=== PATIENT | female | born 1940 | race Caucasian/White ===

== ENCOUNTER → 2016-05-25 | Outpatient (CLI) | payer OTHER, MEDICARE | LOC: FIMAGING 13:18 | PROVIDERS: ATTEND Family Medicine | DX: Z13.820 Encounter for screening for osteoporosis (principal); Z78.0 Asymptomatic menopausal state ==

== ENCOUNTER 2016-10-29 09:57 | Emergency (ER) | payer OTHER, MEDICARE ==
--- NOTE | 2016-10-29 10:26 | EDPHY ---
H & P Stated Complaint: head inj 3 wks ago/bronze lamp fell on head/mitchell since/mild nausea HPI/ROS: CHIEF COMPLAINT: Closed head injury, headache HISTORY OF PRESENT ILLNESS: Patient complains of a headache to the right posterior scalp that occurred 1 lamp struck her 3 weeks ago. She was struck by a bronze lamp on her home while adjusting her oxygen tubes. Struck her on the right side of her occiput. Questionable loss of consciousness. Since that time she has had a headache. It is much better than the time of onset but still lingers. It is worse to palpation. Does not radiate. No numbness or tingling. Some nausea but no vomiting. Some upper neck pain to the right side of midline. No chest or back pain or injury. No lacerations were sustained. No unilateral complaints of the extremities. No facial droop. No confusion. No dizziness or difficulty with her thought process. No other associated complaints or modifying factors. REVIEW OF SYSTEMS: Ten systems reviewed and are negative unless otherwise noted in the HPI PAST MEDICAL HISTORY: Extensive, reviewed with patient SOCIAL HISTORY: Former smoker. Lives here and works at her own company FAMILY HISTORY: Noncontributory EXAMINATION General Appearance: Alert, no distress Head: normocephalic, atraumatic. No depressions or hematomas. No lacerations. No Paredes sign. No raccoon eyes. Eyes: Pupils equal and round, no conjunctival pallor or injection. Bilateral arcus senilis. No hyphema. No subconjunctival hemorrhage. EOMs intact. ENT, Mouth: Mucous membranes moist. Airway patent. No trismus. Neck: Normal inspection, supple, non-tender. No crepitus, step-off or deformity. Respiratory: Lungs are clear to auscultation Cardiovascular: Regular rate and rhythm. No murmur. Pulses intact distally symmetrically in the radial and DP Gastrointestinal: Abdomen is soft and nontender Back: non-tender, no bony abnormalities Neurological: GCS 15. A&O. Cranial nerves 2-12 grossly intact. nonfocal, normal gait. Strength is symmetric in all 4 limbs. No pronator drift. No dysmetria. Skin: Warm and dry, no rash. No lacerations abrasions or contusions. Extremities: Nontender, no pedal edema Psychiatric: Mood and affect normal DIFFERENTIAL DIAGNOSES: Including but not limited to closed head injury, scalp hematoma, subdural hematoma, subarachnoid hemorrhage, cervical sprain, myofascial sprain MDM: 10:18 a.m. Closed head injury 3 weeks ago with lingering, mild complaints. There is no evidence of basilar skull fracture. There is a fully normal neuro examination without deficit. No evidence of midline bony injury of the neck. I have ordered CT scans of the head neck given her age, risk factors and duration of symptoms. She is in no acute distress. 11:10 a.m. Notified by radiologist Dr. Ivory. CT scan of the head reveals no acute findings. CT scan of the cervical spine reveals no acute findings but there are chronic, degenerative changes noted. 11:20 a.m. I have re-evaluated the patient. I have updated her regarding the CT findings. She remains awake alert, no acute distress. Fully ambulatory without any assistance. Fully neuro intact. Discharged home with symptomatic instructions. Follow up with primary care physician and/or Dr. Lozada for definitive care. She is comfortable with this plan and discharged home in stable condition. SUPERVISION: Patient was evaluated in conjunction with the supervising physician. Please see their note for details. Source: Patient Exam Limitations: No limitations - Personal History Current Tetanus/Diphtheria Vaccine: Yes - Medical/Surgical History Hx Asthma: Yes Hx Chronic Respiratory Disease: Yes Hx Diabetes: No Hx Cardiac Disease: Yes Hx Renal Disease: No Hx Cirrhosis: No Hx Alcoholism: No Hx HIV/AIDS: No Hx Splenectomy or Spleen Trauma: No Other PMH: Stent placements, CAD, asthma, COPD - Social History Smoking Status: Former smoker Constitutional: Initial Vital Signs Temperature (C) 98.4 F 10/29/16 10:02 Heart Rate 76 10/29/16 10:02 Respiratory Rate 18 10/29/16 10:02 Blood Pressure 176/84 H 10/29/16 10:02 O2 Sat (%) 95 10/29/16 10:02 O2 Delivery Mode Room Air Allergies/Adverse Reactions: No Known Allergies Allergy (Verified 10/29/16 10:00) Home Medications: Medication Instructions Recorded Ezetimibe [Zetia 10 MG (*)] 10 mg PO DAILY 06/17/12 Fenofibrate [Tricor 145 mg (*)] 145 mg PO DAILY 06/17/12 Fexofenadine HCl [Richelle] 180 mg PO DAILY PRN 06/17/12 Levothyroxine [Synthroid 100 mcg 100 mcg PO MOTUTHFRSA@06 06/17/12 (*)] Vits A,C,E/Lutein/Minerals 1 each PO DAILY 06/17/12 [Ocuvite with Lutein Tablet] Albuterol Sulfate [Albuterol 1 - 2 puffs IH DAILY PRN 05/06/14 Inhaler Hfa] Budesonide/Formoterol 160/4.5 1 puffs IH BID 05/06/14 [Symbicort 160-4.5 Mcg Inh (*)] Cholecalciferol (Vitamin D3) 6,000 unit PO DAILY 05/06/14 [Vitamin D3] Colesevelam HCl [Welchol (*)] 1,875 mg PO BIDMEAL 05/06/14 Herbals/Supplements -Info Only 1 ea PO DAILY 05/06/14 Multivitamins [Multivitamin (*)] 1 each PO DAILY 05/06/14 Conley-3S/Dha/Epa/Fish Oil [Fish 1 each PO DAILY 05/06/14 Oil 1,200 mg Softgel] Rosuvastatin Calcium [Crestor 40mg 20 mg PO DAILY 05/06/14 (*)] Tiotropium Inhaler [Spiriva 1 inh IH DAILY 05/06/14 Inhaler (RX)] Repatha Pushtronex 10/29/16 Medical Decision Making - Diagnostics Imaging Results: Imaging Impressions Cervical Spine CT 10/29/16 10:17 Impression: 1. No acute posttraumatic abnormality identified. If symptoms persist and clinical suspicion warrants, consider MRI. 2. Multilevel degenerative change. 3. Carotid atherosclerosis, left greater than right. 4. Additional findings as above. Findings discussed with Alexandre Moore PA-C, on October 29, 2016 at 11:[address] 10/29/16 10:17 Impression: 1. No acute intracranial findings. 2. Diffuse cerebral atrophy with periventricular and subcortical low attenuation consistent with chronic microvascular ischemic gliosis. Findings discussed with Alexandre Moore PA-C, on October 29, 2016 at 11:07 a.m. - Data Points Laboratory Results: Laboratory Results 10/29/16 10:15 10/29/16 10:15 10/29/16 10/29/16 10/29/16 10:15 10:15 10:15 WBC 5.54 10^3/uL 10^3/uL (3.80-9.50) RBC 4.63 10^6/uL 10^6/uL (4.18-5.33) Hgb 15.1 g/dL g/dL (12.6-16.3) Hct 45.0 % % (38.0-47.0) MCV 97.2 fL fL (81.5-99.8) MCH 32.6 pg pg (27.9-34.1) MCHC 33.6 g/dL g/dL (32.4-36.7) RDW 13.5 % % (11.5-15.2) Plt Count 187 10^3/uL 10^3/uL (150-400) PT 13.6 SEC SEC (12.0-15.0) INR 1.05 (0.83-1.16) APTT 25.6 SEC SEC (23.0-38.0) Sodium 145 mEq/L H mEq/L (134-144) Potassium 3.5 mEq/L mEq/L (3.5-5.2) Chloride 107 mEq/L mEq/L (97-110) Carbon Dioxide 23 mEq/l mEq/l (22-31) Anion Gap 15 mEq/L mEq/L (8-16) BUN 13 mg/dL mg/dL (7-23) Creatinine 0.7 mg/dL mg/dL (0.6-1.0) Estimated GFR > 60 Glucose 102 mg/dL H mg/dL (70-100) Calcium 10.5 mg/dL H mg/dL (8.5-10.4) Departure - Departure Disposition: Home, Routine, Self-Care Clinical Impression: Closed head injury Qualifiers: Encounter type: initial encounter Qualified Code(s): S09.90XA - Unspecified injury of head, initial encounter Condition: Good Instructions: Concussion (ED), Head Injury (ED) Additional Instructions: 1. Follow up with primary care physician 2. Return here for any sudden change of headache, nausea vomiting Referrals: Josiane Altman MD [Primary Care Provider] - As per Instructions
[2016-10-29 10:28] LABS: HEMOGLOBIN 15.1 g/dL (12.6-16.3); MEAN CELL HEMOGLOBIN 32.6 pg (27.9-34.1); MEAN CELL HEMOGLOBIN CONCENTR. 33.6 g/dL (32.4-36.7); MEAN CELL VOLUME 97.2 fL (81.5-99.8); RED BLOOD CELL COUNT 4.63 10^6/uL (4.18-5.33); RED CELL DISTRIBUTION WIDTH 13.5 % (11.5-15.2)
[2016-10-29 10:38] LABS: ANION GAP 15 mEq/L (8-16); CALCIUM 10.5 mg/dL (8.5-10.4); CARBON DIOXIDE 23 mEq/l (22-31); CHLORIDE 107 mEq/L (97-110); CREATININE 0.7 mg/dL (0.6-1.0); GLOMERULAR FILTRATION RATE > 60; GLUCOSE 102 mg/dL (70-100); POTASSIUM 3.5 mEq/L (3.5-5.2); SODIUM 145 mEq/L (134-144)
[2016-10-29 10:40] LABS: INR 1.05 (0.83-1.16); PROTIME(PATIENT) 13.6 SEC (12.0-15.0)
[2016-10-29 10:41] LABS: APTT 25.6 SEC (23.0-38.0)
[2016-10-29 11:33] VITALS: BP 175/62; PULSE 70; TEMP 98.8; O2SAT 91
[2016-10-29 11:35] VITALS: RESP 18
== END 2016-10-29 11:33 | disposition home or self-care (01) ==
DX: S09.90XA Unspecified injury of head, initial encounter (principal); I25.10 Atherosclerotic heart disease of native coronary artery without angina pectoris; J44.9 Chronic obstructive pulmonary disease, unspecified; Z87.891 Personal history of nicotine dependence; Z95.5 Presence of coronary angioplasty implant and graft; W22.8XXA Striking against or struck by other objects, initial encounter; Y92.009 Unspecified place in unspecified non-institutional (private) residence as the place of occurrence of the external cause; Y99.8 Other external cause status; Y93.89 Activity, other specified

== ENCOUNTER 2017-12-03 06:12 | Day surgery (SDC) | payer OTHER, MEDICARE ==
[2017-12-03] MEDS ORDERED: ASPIRIN EC 325 MG TAB PO ONE ×2 (06:19→06:59)
[2017-12-03] MEDS ORDERED: NS 1,000 ML IV ONE (06:19)
[2017-12-03] MEDS ORDERED: diphenhydrAMINE 25 MG CAP PO ONE ×2 (06:19→06:59)
[2017-12-03] MEDS ORDERED: DIAZEPAM 5 MG TAB PO ONE (06:19)
[2017-12-03] MEDS ORDERED: FAMOTIDINE 20 MG TAB PO ONE (06:19)
--- NOTE | 2017-12-03 06:56 | CPEKG ---
Test Reason : OPEN Blood Pressure : / mmHG Vent. Rate : 083 BPM Atrial Rate : 083 BPM P-R Int : 173 ms QRS Dur : 091 ms QT Int : 374 ms P-R-T Axes : 064 041 007 degrees QTc Int : 440 ms Sinus rhythm Minimal ST depression, lateral leads Confirmed by Jose E Mathews ([id number]) on 12/03/2017 6:56:31 AM Referred By: Confirmed By:Jose E Mathews
[2017-12-03 06:58] LABS: PLATELET COUNT 184 10^3/uL (150-400)
--- NOTE | 2017-12-03 06:58 | PDHPUP ---
History & Physical Update H&P update statement: This history and physical update is based on an assessment of the patient which was completed after admission or registration (within 24 hours), but prior to the surgery/procedure. H&P update: H&P reviewed & patient examined, no change in patient's condition since H&P completed
--- NOTE | 2017-12-03 06:58 | PDPROPOC ---
Sedation Plan of Care Sedation Plan of Care: patient educated of risks, benefits, alternatives, patient can tolerate sedation ASA Classification: ASA 2 Planned drugs: fentanyl, midazolam Mallampati Score: Class 2 Mallampati Reference Image: Patient passed 3-3-2 rule?: Yes
[2017-12-03] MEDS ORDERED: FAMOTIDINE 20 MG TAB ONE (06:59)
[2017-12-03] MEDS ORDERED: IOPAMIDOL (ISOVUE-370) 150 ML BTL IV ONE (07:05)
[2017-12-03] MEDS ORDERED: fentaNYL 100 MCG/2 ML INJ ONE (07:05)
[2017-12-03] MEDS ORDERED: MIDAZOLAM 2 MG/2 ML VIAL ONE (07:05)
[2017-12-03] MEDS ORDERED: LIDOCAINE 1% 300 MG/30 ML SDV ONE (07:05)
[2017-12-03 07:06] LABS: INR 1.06 (0.83-1.16)
--- NOTE | 2017-12-03 09:15 | CPIP ---
DATE OF PROCEDURE: 12/03/2017 INDICATION FOR PROCEDURE: Pre TAVR. PROCEDURE: 1. Nonselective left groin sheathogram. 2. Right heart catheterization from left common femoral vein. 3. Abdominal aortogram. HISTORY: Briefly, this is a 77-year-old female with history of severe aortic stenosis with severe pe ripheral vascular disease as well. 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 The patient was consented for right heart catheteriza tion and abdominal aortogram in anticipation for eventual TAVR. DESCRIPTION OF PROCEDURE: After informed consent was obtained, the patient was brought to [facility] where the left groin was prepped and draped in the usual sterile fashion. Using lidocaine, a short 5-Frenc h sheath placed in the left common artery verified angiographically. A 7-Pashto sheath was placed in the left common femoral vein. [place]ather catheter was then advanced. Wedge pressure was measured wi th mean of 6, A-wave 7, V-wave 9, PA pressure was measured systolic 24, diastolic 13, mean of 17. RV pressure systolic 36 with a diastolic of 2, end of 7. Cardiac output was measured to be approximate ly 4.0 with a Alberto of 2.4. AO sat was 89%. PA sat was 69%. At this time, the [place]ather catheter wa s removed. A pigtail catheter was then advanced. However, there was some difficulty advancing the p igtail catheter through the mid distal aorta. This was switched out for a Glidewire and this success fully traversed this area. The pigtail catheter was then placed superior to the area of question whe re pressure was obtained. Of note, there was approximately a 35 mm gradient of pressure difference b etween the area of the immediate descending aorta and the infrarenal aorta indicating most likely eric cific stenosis. At this time an abdominal angiogram was taken above the level of the renals, which s howed patent renal arteries bilaterally with some heavy calcification noted just infrarenally. The a mitch of the bifurcation of the common iliac artery showed a moderate to severe area of calcification o n the right common iliac artery. The right external, internal, and common femoral arteries were wide ly patent. The left common iliac artery, internal and external iliac arteries were widely patent as well. At this time, we did a gentle pullback across this area of the infrarenal calcification, which revealed an approximately 30-35 mm gradient. We took another abdominal angiogram at this point, wh ch showed once again the patent aortoiliac conduit with a notable chunk of calcium in the right commo n iliac artery. At this time, the Glidewire was then gently advanced past the area of question in th e infrarenal area and the pigtail catheter was removed. A JR4 catheter that was then advanced and th is was then placed in the left subclavian artery. Angiography of the left subclavian artery showed h eavy calcification in the ostial left subclavian artery and the proximal left subclavian artery. The mid distal subclavian appeared to be widely patent. At this time, the JR4 catheter was removed over an 0.035 wire. The left groin was closed with manual pressure. Patient tolerated the procedure wel l with no issues. IMPRESSION: 1. Normal right heart pressures with borderline low cardiac output. 2. Severe aortoiliac peripheral arterial disease with noticeable 30-35 mm gradient across the infrar enal aorta. PLAN: Given the patient's vascular disease as well as the porcelain aorta, the patient is clearly no t an adequate open surgical candidate. Left subclavian artery access does not appear adequate as wel l as the patient has heavy calcification across the left ostial and proximal subclavian. Her left il eofemoral access is widely patent and this would be adequate to access a large sheath. The goal will be to potentially perform access of left common femoral artery with serial up-dilations through the area of the distal aorta over a very stiff wire and place an 18-Pashto sheath with subsequent placeme nt of a CoreValve through the sheath if it is through the lesion. The right radial access could be o btained for pigtail and pressure monitoring. We will discuss this with our TAVR team and proceed acc ordingly. /[id number]/MODL
[2017-12-03] MEDS ORDERED: ONDANSETRON 4 MG/2 ML VIAL IVP PRN (09:51)
[2017-12-03] MEDS ORDERED: ATROPINE SULFATE 1 MG/10 ML SYR IVP PRN (09:51)
== END 2017-12-03 11:45 | disposition home or self-care (01) ==
LOC: FCATH 06:12
PROVIDERS: ATTEND Internal Medicine Cardiovascular Disease
PROC: 4A023N6 Measurement of Cardiac Sampling and Pressure, Right Heart, Percutaneous Approach (ICD-10-PCS; principal; 2017-12-03)
PROC: B4101ZZ Fluoroscopy of Abdominal Aorta using Low Osmolar Contrast (ICD-10-PCS; principal; 2017-12-03)
DX: I35.9 Nonrheumatic aortic valve disorder, unspecified (principal); I70.0 Atherosclerosis of aorta; I70.8 Atherosclerosis of other arteries; I25.10 Atherosclerotic heart disease of native coronary artery without angina pectoris; I10 Essential (primary) hypertension; E03.9 Hypothyroidism, unspecified; E78.5 Hyperlipidemia, unspecified; J44.9 Chronic obstructive pulmonary disease, unspecified; E55.9 Vitamin D deficiency, unspecified; Z95.5 Presence of coronary angioplasty implant and graft; Z82.49 Family history of ischemic heart disease and other diseases of the circulatory system
CPT/HCPCS: C1769; J1644; J2250; J3010; Q9967

== ENCOUNTER 2017-12-20 06:59 | Inpatient (IN) | payer OTHER, MEDICARE ==
[~2017-12-20 06:59] MED LIST: LIDOCAINE 1% 300 MG/30 ML SDV ONE; NS 1,000 ML IV ONE
[2017-12-20] MEDS ORDERED: IOPAMIDOL (ISOVUE-370) 150 ML BTL IV ONE ×3 (07:00→12:08)
--- NOTE | 2017-12-20 07:17 | PDPROPOC ---
Sedation Plan of Care Sedation Plan of Care: mental status noted, patient educated of risks, benefits , alternatives, patient can tolerate sedation ASA Classification: ASA 2 Planned drugs: other Mallampati Score: Class 2 Mallampati Reference Image: Patient passed 3-3-2 rule?: Yes
[2017-12-20] MEDS ORDERED: ceFAZolin 2 GM/DEXTROSE 100 ML IV ONE (07:30)
[2017-12-20] MEDS ORDERED: fentaNYL 100 MCG/2 ML INJ ONE ×2 (08:19→11:48)
[2017-12-20] MEDS ORDERED: PROPOFOL/EMULSION 500 MG/50 ML BOTTLE IV ONE (08:20)
[2017-12-20] MEDS ORDERED: MIDAZOLAM 2 MG/2 ML VIAL ONE (08:20)
[2017-12-20] MEDS ORDERED: ONDANSETRON 4 MG/2 ML VIAL ONE (08:22)
[2017-12-20] MEDS ORDERED: LIDOCAINE 2% 100 MG/5 ML SYR ONE (08:22)
[2017-12-20] MEDS ORDERED: DEXAMETHASONE 4 MG/ML VIAL ONE (08:22)
[2017-12-20] MEDS ORDERED: LIDOCAINE 2% JELLY 5 ML TUBE ONE (08:22)
[2017-12-20] MEDS ORDERED: DEXMEDETOMIDINE HCL 400 MCG in NS 100 ML IV ONE (08:30)
[2017-12-20] MEDS ORDERED: PHENYLEPHRINE HCL 100 MCG/ML SYR ONE (08:59)
[2017-12-20] MEDS ORDERED: MAGNESIUM SULF 1 GM/DEXTROSE 100 ML BAG IV ONE (09:05)
[2017-12-20] MEDS ORDERED: NITROGLYCERIN 1,500 MCG/15 ML VIAL MISC ONE (09:15)
[2017-12-20] MEDS ORDERED: HEPARIN 10,000 UNIT/10 ML MDV (1,000 UNIT/ML) ONE ×3 (09:15→10:24)
--- NOTE | 2017-12-20 09:47 | PDANEPAE ---
ANE History of Present Illness critical s/f TAVR using R rad and groin access with carotid as backup ANE Past Medical History - Cardiovascular History Hx Hypertension: Yes Hx Chest Pain: Yes Hx Coronary Artery / Peripheral Vascular Disease: Yes Hx CHF / Valvular Disease: Yes - Pulmonary History Hx COPD: Yes Hx Oxygen in Use at Home: Yes Hx Sleep Apnea: No - Endocrine History Hx Diabetes: No Hypothyroid: Yes - Liver History Hx Hepatic Disorders: Yes Hepatic History Comment: elevated LFT on statin - Chronic Pain History Chronic Pain: No ANE Review of Systems Review of Systems: - Exercise capacity METS (RN): 3 METS ANE Patient History - Allergies Allergies/Adverse Reactions: simvastatin Adverse Reaction (Uncoded 12/20/17 08:14) Other-Enter Comments - Home Medications Home medications: home medication list seen and reviewed Home Medications: Ezetimibe [Zetia 10 MG (*)] 10 mg PO DAILY 06/17/12 [Last Taken 12/19/17 08:00] Fenofibrate [Tricor 145 mg (*)] 145 mg PO DAILY 06/17/12 [Last Taken 12/19/17 08 :00] Fexofenadine HCl [Richelle] 180 mg PO DAILY PRN 06/17/12 [Last Taken 06/09/12] Levothyroxine [Synthroid 100 mcg (*)] 100 mcg PO MOTUTHFRSA@06/17/12 [Last Taken 12/19/17 08:00] Albuterol Sulfate [Albuterol Inhaler Hfa] 1 - 2 puffs IH DAILY PRN 05/06/14 [ Last Taken Unknown] Budesonide/Formoterol 160/4.5 [Symbicort 160-4.5 Mcg Inh (*)] 2 puffs IH BID 11/10 [Last Taken 12/19/17 08:00] Herbals/Supplements -Info Only 1 ea PO DAILY 05/06/14 [Last Taken 12/19/17 08:00 ] Multivitamins [Multivitamin (*)] 1 each PO DAILY 05/06/14 [Last Taken 12/19/17 08:00] Evolocumab [Repatha Sureclick] 140 mg SQ Q14D 10/29/16 [Last Taken 12/11/17 08: 00] Aspirin [Aspirin 81mg (*)] 81 mg PO DAILY 11/01/17 [Last Taken 12/19/17 08:00] C/E/Zn/Cu/OM3/DHA/EPA/LUT/ZEAX [Preservision Areds 2 Softgel] 1 each PO BID 09/13 [Last Taken 12/19/17 08:00] Cholecalciferol Vit D3 [Vitamin D3 (*)] 5,000 units PO DAILY 11/01/17 [Last Taken 12/19/17 08:00] Montelukast Sodium [Singulair 10 mg (*)] 10 mg PO DAILY18 11/01/17 [Last Taken 12/19/17 08:00] Omeprazole 40 mg PO DAILY 11/01/17 [Last Taken 12/19/17 08:00] Rosuvastatin Calcium [Crestor] 5 mg PO DAILY 11/01/17 [Last Taken 12/19/17 08:00 ] Fluticasone Hfa 44 Mcg [Flovent 44 MCG Hfa MDI (*)] 2 puffs IH BID 11/02/17 [ Last Taken Unknown] Calcium Carb W/Vit D [Calcium Carb W/Vit D 500/200 (*)] 500 mg PO DAILY [Last Taken 12/19/17 08:00] Calcium Carbonate [Tums 500MG (*)] 500 mg PO DAILY PRN 12/06/17 [Last Taken Unknown] Carvedilol [Coreg (*)] 3.125 mg PO DAILY 12/06/17 [Last Taken 12/19/17 08:00] Ranitidine HCl [Zantac] 150 mg PO BID PRN 12/06/17 [Last Taken Unknown] Zolpidem Tartrate [Ambien 5MG (*)] 5 mg PO HS PRN 12/06/17 [Last Taken Unknown] - Anes Hx Anes Hx: no prior problems - Smoking Hx Smoking Status: Former smoker Marijuana use: No - Alcohol Use Alcohol Use: Occasionally - Family Anes Hx Family Anes Hx: none ANE Labs/Vital Signs - Labs - CBC WBC: reviewed and OK except Mg++ low at 1.4 - Vital Signs Height: 163 cm Weight: 58.5 kg ANE Physical Exam - Airway Neck exam: decreased ROM Mallampati Score: Class 2 - Pulmonary Pulmonary: expiratory wheeze, inspiratory crackles - Cardiovascular Cardiovascular: regular rate and rhythym - ASA Status ASA Status: IV ANE Anesthesia Plan Anesthesia Plan: general endotracheal anesthesia, GA with mask (heavy sedation vs IV GA with switch to GA if needed for carotid access), MAC Lines/Monitors: arterial line
[2017-12-20] MEDS ORDERED: PROPOFOL 200 MG/20 ML VIAL ONE ×2 (11:25→12:02)
[2017-12-20] MEDS ORDERED: ROCURONIUM 50 MG/5 ML VIAL ONE (11:31)
[2017-12-20] MEDS ORDERED: PROTAMINE SULFATE 50 MG/5 ML VIAL IVP ONE (12:48)
[2017-12-20] MEDS ORDERED: IBUPROFEN 800 MG TAB PO PRN (13:06)
[2017-12-20] MEDS ORDERED: hydrALAZINE 20 MG/ML VIAL IVP PRN (13:06)
[2017-12-20] MEDS ORDERED: ONDANSETRON 4 MG/2 ML VIAL IVP PRN ×2 (13:06→14:20)
[2017-12-20] MEDS ORDERED: ATROPINE SULFATE 1 MG/10 ML SYR IVP PRN (13:06)
[2017-12-20] MEDS ORDERED: HYDROmorphONE/DILAUDID 1 MG/ML INJ IVP PRN (13:06)
[2017-12-20] MEDS ORDERED: ZOLPIDEM TARTRATE 5 MG TAB PO PRN (13:08)
[2017-12-20] MEDS ORDERED: CALCIUM CARBONATE 500 MG CHEWABLE TAB PO PRN (13:08)
[2017-12-20] MEDS ORDERED: EVOLOCUMAB SQ SCH (13:15)
[2017-12-20] MEDS ORDERED: SUGAMMADEX SODIUM 200 MG/2 ML VIAL IVP ONE (13:20)
--- NOTE | 2017-12-20 13:57 | CPIP ---
DATE OF PROCEDURE: 12/20/2017 INDICATION FOR PROCEDURE: Critical aortic stenosis. PROCEDURE: 1. Nonselective left groin sheathogram. 2. 6-Armenian sheath right common femoral vein. 3. Right radial 6-Armenian sheath access. 4. Balloon aortic valvuloplasty. 5. Aortic root angiography. 6. Left heart catheterization, placement of Medtronic CoreValve Evolute R 26 mm valve via the trans- carotid route after attempts to the transfemoral route. 7. Nonselective aortic root angiography. Briefly, this is a 77-year-old female with history of porcelain aorta, severe symptomatic aortic sten osis, who was consented for transfemoral TAVR and potentially alternate access TAVR if needed. DESCRIPTION OF PROCEDURE: The patient was taken to [facility] where the patient was placed under MAC sedati on. 2 g of Ancef were administered prior to the case as well as 1 g of mag sulfate. Using local lid ocaine, a slender 6-Armenian sheath was placed in the right radial artery after Shorty's test was perfor med. A 6-Armenian sheath was placed in the right common vein. A 6-Armenian sheath was placed in the lef t common femoral artery and upsized to an 8-Armenian sheath for a bilateral Perclose placement. Of not e, the patient did have an infrarenal lesion of heavy calcifications. This was successfully traverse d with a Glidewire and a glide catheter, switched out for a Lunderquist wire. We switched out for mu ltiple dilators from 12, 14, 16 and then 18. An 18-Armenian [place] sheath was then placed across the les ion. After this was performed, the patient received 7000 heparin IV. At this time, the valve was cr ossed with the AL1 catheter. Straight stiff Glidewire was switched out to pigtail catheter, which wa s switched out for a Confida wire. At this time, BAV commenced with an 18 x 60 balloon at a pacing r ate of 180 beats per minute. After this was performed, the balloon was removed. We then attempted p lacement of a Medtronic CoreValve Evolut R 26 mm valve; however, the R valve continuously got caught on an area of heavy calcification in the sinotubular junction. Despite multiple maneuvering, this co uld not successfully traverse this area. We decided to switch out wires for an Amplatz superstiff wi re as well as even an additional Lunderquist wire. None of these techniques worked. We even tried a nonselective aortic balloon angioplasty with the radial access sheath to see if this deflected the v alve off into the aortic valve. However, this was unsuccessful as well. After multiple attempts at trying to get the valve to traverse the aortic valve we decided that rather than risking a potential dissection, we would then attempt carotid artery access. At this time the patient was electively int ubated. Carotid artery access was obtained by Dr. Brewster. After cutdown access was obtained a [place] er technique was placed through the 6-Armenian sheath in the right common carotid artery. We then proc eeded with placement of the inline CoreValve sheath with the 26 valve. After the valve was crossed, the AL1 catheter and straight stiff wire was switched out for a Confida wire. The valve was then ent ered. The valve much straighter and was deployed successfully. It was somewhat deep initially and d eployment was recaptured and deployed more proximal. After deployment, there was trivial to mild par avalvular leak. There were no hemodynamic changes otherwise. After the valve was deployed, the hartmann th was pulled back. The right carotid was closed with a pursestring suture. At this time, after the pursestring suture was performed, a nonselective carotid angiography was obtained with VS3 catheter. This showed patent flow into the innominate artery. There was a napkin ring-like kink in the commo n carotid artery which was the area of suture. However, there was excellent flow distal to this into the internal and external carotid arteries. At this time, the VS3 catheter was removed. The left g roin was closed with the Perclose. The right groin was closed with manual pressure. The right radia l was closed with a TR band. The patient tolerated the procedure well and no further issues. IMPRESSION: Successful placement of Medtronic CoreValve Evolut R 26 mm valve by the trans-carotid ro [place]. PLAN: The patient will be admitted to ICU. Further orders following clinical course. /[id number]/MODL
[2017-12-20] MEDS ORDERED: CETIRIZINE 10 MG TAB PO PRN (14:17)
[2017-12-20] MEDS ORDERED: ALBUTEROL 3 ML DEYVIAL IH PRN (14:20)
[2017-12-20] MEDS ORDERED: PROMETHAZINE HCL 25 MG/ML INJ IVP PRN (14:20)
[2017-12-20] MEDS ORDERED: DEXAMETHASONE 4 MG/ML VIAL IVP PRN (14:20)
[2017-12-20] MEDS ORDERED: MEPERIDINE 25 MG/0.5 ML AMP IVP PRN (14:20)
[2017-12-20] MEDS ORDERED: NALOXONE HCL 0.4 MG/ML INJ IVP PRN (14:20)
[2017-12-20] MEDS ORDERED: oxyCODONE IR 5 MG TAB PO PRN (14:20)
[2017-12-20] MEDS ORDERED: METOCLOPRAMIDE 10 MG/2 ML VIAL IVP PRN (14:20)
[2017-12-20] MEDS ORDERED: fentaNYL 100 MCG/2 ML INJ IVP PRN (14:20)
[2017-12-20] MEDS ORDERED: LR 500 ML IV PRN (14:20)
[2017-12-20] MEDS ORDERED: PHENYLEPHRINE HCL 100 MCG/ML SYR IVP PRN (14:20)
[2017-12-20] MEDS ORDERED: LABETALOL HCL 5 MG/ML 20 ML MDV IVP PRN (14:20)
[2017-12-20] MEDS ORDERED: ACETAMINOPHEN 500 MG TAB PO PRN (14:20)
[2017-12-20] MEDS ORDERED: HYDROCODONE/APAP 5/325 TAB PO PRN (14:20)
--- NOTE | 2017-12-20 14:45 | PDMN ---
Medical Necessity Medical necessity: 77 y/o s/p TAVR, [facility] [id number] Aortic Valve Replacement, Transcatheter, [facility] Only
--- NOTE | 2017-12-20 17:03 | POSTANESTH ---
Post Anesthetic Evaluation Cardiovascular Status: Normal, Stable Respiratory Status: Similar to Pre-op Cond., Tx Decrease in SpO2 Level of Consciousness/Mental Status: Can Participate in Eval Pain Control: Adequate, Prn Tx Ordered Nausea/Vomiting Control: Adequate, Prn Tx Ordered Complications Possibly Related to Anesthesia: None Noted
[2017-12-20] MEDS: ACETAMINOPHEN 325 MG TAB PO SCH ×2 (18:12→23:39)
[2017-12-20] MEDS: MONTELUKAST SODIUM 10 MG TAB PO SCH (18:12)
[2017-12-20] MEDS: FLUTICASONE HFA 44 MCG MDI IH SCH (20:09)
[2017-12-20] MEDS: BUDESONIDE/FORMOTEROL 160/4.5 60 PUFFS/MDI IH SCH (20:09)
[2017-12-20] MEDS: PRESERVISION AREDS2 FORMULA EYE VIT 1 EACH PO SCH (20:55)
[2017-12-20] MEDS ORDERED: FAMOTIDINE 20 MG TAB PO PRN (21:00)
[2017-12-20] MEDS: oxyCODONE IR 5 MG TAB PO PRN (23:38)
[2017-12-20] MEDS: ONDANSETRON DISINTEGRATING 4 MG TAB PO PRN (23:38)
[2017-12-21] MEDS: ONDANSETRON DISINTEGRATING 4 MG TAB PO PRN (03:52)
[2017-12-21] MEDS: ACETAMINOPHEN 325 MG TAB PO SCH ×3 (05:43→18:15)
[2017-12-21] MEDS: LEVOTHYROXINE 100 MCG TAB PO SCH (05:43)
[2017-12-21 07:28] LABS: PLATELET COUNT 91 10^3/uL (150-400)
--- NOTE | 2017-12-21 07:52 | PDCARPN ---
Cardiology Progress Note Chief Complaint: SOB Assessment/Plan: Assessment: s/p TAVR Plan: 12/21/17 07:52 doing well OOB IS check echo transfer to floor check labs Subjective: doing well Reviewed/Discussed With: multidisciplinary team Time Spent with Patient: greater than 25 minutes Time Spent with Patient: Greater than 25 minutes spent on this patients care, greater than 50% of time spent counseling, educating, and coordinating care regarding the above mentioned plan. Objective: Vital Signs (8 Hrs) Pulse Resp BP Pulse Ox 12/21/17 06:00 87 18 133/55 H 93 12/21/17 05:00 82 18 136/52 H 93 12/21/17 04:00 76 18 148/56 H 93 12/21/17 03:00 86 18 131/54 H 92 12/21/17 02:00 75 16 134/53 H 91 L 12/21/17 01:00 77 16 116/57 L 93 12/21/17 00:00 80 18 115/44 L 95 Intake/Output (24 Hrs) 12/20/17 12/21/17 12/22/17 05:59 05:59 05:59 Intake Total 3300 Output Total 700 Balance 2600 Intake: Oral (ml) 100 IV Intake (ml) 3200 Output: Urine (ml) 350 Bedpan 350 Estimated Blood Loss (ml) 350 Other: Weight 58.5 kg Number of Voids Toilet 4 Number of Stools Toilet 1 Result Diagrams: 12/21/17 07:15 12/21/17 07:15 - Physical Exam Constitutional: healthy appearing Ears, Nose, Mouth, Throat: moist mucous membranes Cardiovascular: regular rate and rhythm Peripheral Pulses: 1+: femoral (R), femoral (L) Respiratory: clear to auscultate bilat Gastrointestinal: normoactive bowel sounds Genitourinary: no suprapubic tenderness Skin: no rashes Musculoskeletal: no muscular tenderness Neurologic: AAOx3 ICD10 Worksheet Patient Problems: Problems Problem Status Onset Dyspnea Acute Shortness of breath Acute
[2017-12-21] MEDS ORDERED: Herbals/Supplements -Info Only PO SCH (09:00)
[2017-12-21] MEDS ORDERED: CARVEDILOL 3.125 MG TAB PO SCH (09:00)
[2017-12-21] MEDS ORDERED: ASPIRIN 81 MG CHEWABLE TAB PO SCH (09:00)
[2017-12-21] MEDS: CHOLECALCIFEROL VIT D3 1,000 UNITS TAB PO SCH (09:06)
[2017-12-21] MEDS: CALCIUM CARB W/VIT D 500 MG TAB PO SCH (09:06)
[2017-12-21] MEDS: PANTOPRAZOLE SODIUM 40 MG TAB PO SCH (09:07)
[2017-12-21] MEDS: PRESERVISION AREDS2 FORMULA EYE VIT 1 EACH PO SCH ×2 (09:07→20:46)
[2017-12-21] MEDS: MULTIVITAMINS 1 EACH TAB PO SCH (09:08)
[2017-12-21] MEDS: EZETIMIBE 10 MG TAB PO SCH (09:08)
[2017-12-21] MEDS: ROSUVASTATIN CALCIUM 10 MG TAB PO SCH (09:08)
[2017-12-21] MEDS: FLUTICASONE HFA 44 MCG MDI IH SCH ×2 (09:12→22:07)
[2017-12-21] MEDS: BUDESONIDE/FORMOTEROL 160/4.5 60 PUFFS/MDI IH SCH ×2 (09:12→22:07)
[2017-12-21] MEDS: FENOFIBRATE 145 MG TAB PO SCH (09:18)
--- NOTE | 2017-12-21 09:25 | ASMTCMCOM ---
CM Note CM Note Notes: 77yr old female admitted due to Aortic stenosis. She has a Hx of Bilat LE edema, COPD, Degenerative OA, HLD, Hypothyroid Hypoxemia, Coronary stents. Patient to have a TAVR procedure. CM not anticipating that patient will have any discharge needs. Date Signed: 12/21/2017 09:24 AM Electronically Signed By:Maria Guadalupe Capellan LCSW
--- NOTE | 2017-12-21 10:14 | ECHO ---
[email or web address] [address] [address] Main: [phone] Fax: Transthoracic Echocardiogram Name: LVI LOMBARDI MR#: [id number] Study Date: 12/21/2017 Study Time: 07:49 AM Date of : 1940 Age: 77 year(s) Height: 162.6 cm (64 in.) Weight: 58.06 kg (128 lb.) BSA: 1.62 m2 Gender: Female Examination: Echo Indication: Post TAVR Image Quality: Contrast: Requested by: Jose E Mathews BP: 122 mmHg/60 mmHg Heart Rate: Rhythm: Indication: Post TAVR Procedure Staff Consulting Hr Professional: Epifanio Quintanilla RDCS Reading Physician: Jose E Mathews MD Requesting Provider: Conclusions: Normal global systolic LV function. EF is 69 %. There is mild mitral regurgitation with a severly calcific posterior mitral valve leaflet.. There is successful implantation of Transcutaneous Medtronic Corevalve. The Av Vmax is 1.9cm/s with Mean Pg of 8 mmHg and a Max PG of 15 mmHg. There is mild AI. Measurements: Chambers Valvular Assessment AV/MV Valvular Assessment TV/PV Normal Normal Normal Name Value Range Name Value Range Name Value Range Ao Mulu (MM): 2.0 cm (2.2 cm-3.7 AV Vmax: 1.93 m/s (1 m/s-1.7 TR Vmax: 2.86 mm/s ( - ) cm) m/s) TR PGmax: 33 mmHg ( - ) IVSd (2D): 1.0 cm (0.6 cm-1.1 AV maxP mmHg ( - ) syst. PAP: 38 mmHg ( - ) cm) AV meanP mmHg ( - ) PV Vmax: 1.09 m/s (0.6 m/s-0.9 LVDd (2D): 3.2 cm (3.9 cm-5.3 LVOT Vmax: 0.96 m/s (0.7 m/s-1.1 m/s) cm) m/s) PV PGmax: 5 mmHg ( - ) LVDs (2D): 2.0 cm (2.1 cm-4 JACEK (Vmax): 1.1 cm2 ( - ) cm) JACEK (VTI): 1.3 cm ( - ) LVPWd (2D): 0.9 cm ( - ) AR (PHT): 557 ms ( - ) LVOTd 1.7 cm 1.7 cm mm MV E Vmax: 0.99 m/s ( - ) LVEF (2D): 69 (>=54 %) MV A Vmax: 1.36 m/s ( - ) MV E/A: 0.73 ( - ) MV meanP mmHg ( - ) MVA (Vmax): 1.7 m/s ( - ) Continued Measurements: Chambers Valvular Assessment AV/MV Valvular Assessment TV/PV Name Value Name Value Name Value Patient: LIV LOMBARDI Study Date: 12/21/2017 Page 1 of 2 07:49 AM LADs Lon.4 cm MV Annulus: 3.1 cm CVP (est.): 5 mmHg LA Area: 20.8 cm2 MV E' Septal: 0.05 m/s LA Volume: 63 ml MV E/E' Septal: 20.00 LA Volume Index: 38.9 ml/m2 MV VTI: 31.10 cm MR ERO: 0.180 cm2 MR PISA radius: 7 mm MR Reg. Volume: 25 ml MR Reg. Fraction: 11 % AR Vmax: 2.47 cm/s Findings: Left Ventricle: Normal size left ventricle. Borderline concentric LV hypertrophy. Normal global systolic LV function. EF is 69 %. No regional wall motion abnormality. Diastolic LV function normal for age. Right Ventricle: Normal size right ventricle. Left Atrium: The left atrium is mildly dilated. Right Atrium: The right atrium is normal in size. Mitral Valve: There is mild mitral regurgitation with a severly calcific posterior mitral valve leaflet.. Aortic Valve: There is successful implantation of Transcutaneous Medtronic Corevalve. The Av Vmax is 1.9cm/s with Mean Pg of 8 mmHg and a Max PG of 15 mmHg. There is mild AI. Tricuspid Valve: The tricuspid valve appears normal. Trivial to mild tricuspid valve regurgitation. The pulmonary artery pressure is normal. Pulmonic Valve: The pulmonic valve is normal in appearance and function. Aorta: The aorta is normal. Pericardium: No pericardial effusion. (No Signature Object) Patient: LIV LOMBRADI Study Date: 12/21/2017 Page 2 of 2 07:49 AM [id number]
[2017-12-21] MEDS ORDERED: MAGNESIUM SULF 1 GM/DEXTROSE 100 ML IV ONE (13:26)
[2017-12-21] MEDS: MONTELUKAST SODIUM 10 MG TAB PO SCH (18:14)
[2017-12-21] MEDS: oxyCODONE IR 5 MG TAB PO PRN (20:46)
[2017-12-22] MEDS: oxyCODONE IR 5 MG TAB PO PRN (01:00)
[2017-12-22] MEDS: ACETAMINOPHEN 325 MG TAB PO SCH ×2 (01:04→06:07)
--- NOTE | 2017-12-22 03:25 | GOP ---
DATE OF OPERATION: 12/20/2017 SURGEON: Kareem Brewster DO JACQUARD LOOM CARD CHANGER: Amy Ibrahim M.D. ANESTHESIOLOGIST: Houston Sanchez M.D. PREOPERATIVE DIAGNOSIS: Critical aortic stenosis. POSTOPERATIVE DIAGNOSIS: Critical aortic stenosis. PROCEDURE PERFORMED: 1. Transcatheter aortic valve replacement, #26 Evolute R valve via the transcarotid route, right. 2. Attempted transfemoral deployment of aortic valve. FINDINGS: Patient was noted to have critical aortic stenosis. She was also noted to have significan t infrarenal stenosis of her aorta as well as heavy calcification and plaquing of her entire ascendin g aorta, arch and root. DESCRIPTION OF PROCEDURE: Preoperative planning with Dr. Mathews and the heart team was to perform t ransfemoral cannulation and deployment of an Evolute valve and as an alternative route, right carotid access. Please see Dr. Mathews's note. After multiple attempts at transfemoral deployment, we were unable to cross the aortic valve and sinotubular junction with the device although wires and a ballo on valvuloplasty had easily been crossed into that area. Multiple different techniques were utilized . We then converted to exposure of the right common femoral artery through a limited transverse inci cale with control proximally and distally. I then gained access with a 6-Divehi Angiocath and then Bernarda Mathews introduced the device and easily crossed the aortic valve. I then maintained control of v ascular access while Dr. Mathews deployed the aortic valve with echo and fluoroscopic guidance. The device was then removed after confirmation of placement. I then primarily repaired the carotid arter y with a continuous running 5-0 Prolene. There was good Doppler flow proximally and distally. It wa s slightly distorted due to the jagged nature of entry of the device into the artery. However, compl etion angiography showed excellent flow as well as good Doppler flow both above and below. The wound was closed in standard fashion. Dressings were applied. Patient was returned to recovery room in s table condition. SURGEONS: 1. Jose E Mathews M.D. 2. Kareem Brewster DO. /[id number]/MODL
[2017-12-22 04:05] LABS: PLATELET COUNT 63 10^3/uL (150-400)
[2017-12-22] MEDS: LEVOTHYROXINE 100 MCG TAB PO SCH (06:08)
--- NOTE | 2017-12-22 06:58 | PDCARPN ---
Cardiology Progress Note Chief Complaint: SOB Assessment/Plan: Assessment: s/p TAVR Plan: 12/21/17 07:52 doing well OOB IS check echo transfer to floor check labs 12/22/17 06:56 feels great Hgb lower but stable Renal function 1.4--pt making good U/O d/c home today f/u next week check BMP/CBC prior to visit increase coreg to 3.125 mg po bid Subjective: feels well Reviewed/Discussed With: multidisciplinary team Time Spent with Patient: greater than 25 minutes Time Spent with Patient: Greater than 25 minutes spent on this patients care, greater than 50% of time spent counseling, educating, and coordinating care regarding the above mentioned plan. Objective: Vital Signs (8 Hrs) Temp Pulse Resp BP Pulse Ox 12/22/17 04:00 36.8 C 84 16 137/72 H 97 12/22/17 00:00 36.8 C 83 16 152/66 H 96 Intake/Output (24 Hrs) 12/21/17 12/22/17 12/23/17 05:59 05:59 05:59 Intake Total 3300 750 Output Total 700 Balance 2600 750 Intake: Oral (ml) 100 650 IV Intake (ml) 3200 IV Infused (ml) 100 Magnesium Sulf 1 gm/ 100 Dextrose 100 ml @ 100 mls /hr IV ONCE ONE Rx#: [id number] Output: Urine (ml) 350 Bedpan 350 Estimated Blood Loss (ml) 350 Other: Weight 58.5 kg 60.8 kg Number of Voids Toilet 4 3 Number of Stools Toilet 1 Result Diagrams: 12/22/17 03:18 12/22/17 03:18 - Physical Exam Constitutional: healthy appearing Eyes: PERRL Ears, Nose, Mouth, Throat: moist mucous membranes Cardiovascular: regular rate and rhythm Peripheral Pulses: 1+: femoral (R), femoral (L) Respiratory: clear to auscultate bilat Gastrointestinal: normoactive bowel sounds Genitourinary: no suprapubic tenderness Skin: no rashes Musculoskeletal: no muscular tenderness Neurologic: AAOx3 Psychiatric: cooperative ICD10 Worksheet Patient Problems: Problems Problem Status Onset Dyspnea Acute Shortness of breath Acute
[2017-12-22 07:46] VITALS: BP 98/65
[2017-12-22] MEDS ORDERED: CARVEDILOL 3.125 MG TAB PO SCH (08:00)
--- NOTE | 2017-12-22 08:05 | GDS ---
DISCHARGE DIAGNOSIS: Transcatheter aortic valve replacement. 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 The patient underwent successful TAVR placement [facility] after the transfemoral approach was not possible due to the significant calcification. Postproc edure, the patient actually has done quite well with her echocardiogram showing a normal ejection fra ction, normally functioning TAVR valve with trivial perivalvular leak. The patient has been ambulati ng in the halls without problems. Of note, the patient's hemoglobin did drop from a baseline of 13.6 to 9 over the 48 hours but there have been no obvious signs of bleeding. Additionally, the patient' s creatinine did elevate from 0.7 to 1.4, most likely secondary to either contrast nephropathy versus atheroemboli to the kidneys. Currently, she has been urinating multiple times a day with no issues and has had no flank pain or associated issues. We will discharge the patient home with her home med ications this morning as well as increasing her to carvedilol to 3.125 p.o. twice daily. We will hol d her aspirin temporarily until her hemoglobin and platelet levels stabilize. We will check a CBC, m agnesium, and a BMP next week prior to her office followup with me. /[id number]/MODL
[2017-12-22] MEDS: PRESERVISION AREDS2 FORMULA EYE VIT 1 EACH PO SCH (08:19)
[2017-12-22] MEDS: CALCIUM CARB W/VIT D 500 MG TAB PO SCH (08:19)
[2017-12-22] MEDS: FENOFIBRATE 145 MG TAB PO SCH (08:20)
[2017-12-22] MEDS: EZETIMIBE 10 MG TAB PO SCH (08:20)
[2017-12-22] MEDS: CHOLECALCIFEROL VIT D3 1,000 UNITS TAB PO SCH (08:20)
[2017-12-22] MEDS: ROSUVASTATIN CALCIUM 10 MG TAB PO SCH (08:21)
[2017-12-22] MEDS: MULTIVITAMINS 1 EACH TAB PO SCH (08:21)
[2017-12-22] MEDS: PANTOPRAZOLE SODIUM 40 MG TAB PO SCH (08:21)
[2017-12-22] MEDS: FLUTICASONE HFA 44 MCG MDI IH SCH (08:27)
[2017-12-22] MEDS: BUDESONIDE/FORMOTEROL 160/4.5 60 PUFFS/MDI IH SCH (08:28)
--- NOTE | 2017-12-22 14:29 | ASMTLACE ---
LACE Length of stay for Answers: 1 day current admission Acuity / Level of Answers: Yes Care: Did the patient have an inpatient admission? Comorbidities - select Answers: Chronic pulmonary disease all that apply Congestive heart failure Coronary Artery Disease Other Notes: HTN; Hypothyroid # of Emergency department Answers: 1-2 visits in the last 6 months Score: 12 Date Signed: 12/22/2017 02:29 PM Electronically Signed By:Patrizia Palmer RN
--- NOTE | 2017-12-22 14:30 | ASMTDCNOTE ---
Case Management Discharge Discharge Order Complete? Answers: Yes Patient to Obtain Answers: via Family Medications Transportation Arranged Answers: Family/Friends Discharge Comments Notes: Pt discharged home with family support and follow up as directed. Pt admitted for TAVR procedure. Date Signed: 12/22/2017 02:29 PM Electronically Signed By:Patrizia Palmer RN
--- NOTE | 2017-12-23 11:01 | ECHO ---
[email or web address] [id number] Main: [phone] Fax: Transthoracic Echocardiogram Name: LIV LOMBARDI MR#: [id number] Study Date: 12/20/2017 Study Time: 09:10 AM Date of : 1940 Age: 77 year(s) Height: ( ) Weight: ( ) BSA: Gender: Female Examination: Limited Echo Indication: TAVR Image Quality: Contrast: Requested by: Jose E Mathews BP: / Heart Rate: Rhythm: Indication: TAVR Procedure Staff Yard Assistant: Epifanio Quintanilla RDCS Reading Physician: Amy Ibrahim MD Requesting Provider: Jose E Mathews Conclusions: Normal global systolic LV function. No regional wall motion abnormality. Moderate mitral valve regurgitation is present. Post TAVR, mean aortic valve gradient is 3 mmHg with an JACEK of 1.8 cm2. Successful Medtronic TAVR implantation. Mild post procedure AR. No pericardial effusion Measurements: Chambers Valvular Assessment AV/MV Valvular Assessment TV/PV Normal Normal Normal Name Value Range Name Value Range Name Value Range LVOTd 2.0 cm 2.0 cm mm AV Vmax: 2.62 m/s (1 m/s-1.7 m/s) AV maxP mmHg ( - ) AV meanP mmHg ( - ) LVOT Vmax: 0.67 m/s (0.7 m/s-1.1 m/s) JACEK (Vmax): 0.8 cm2 ( - ) JACEK (VTI): 0.9 cm ( - ) Continued Measurements: Findings: Left Ventricle: Normal global systolic LV function. No regional wall motion abnormality. Mitral Valve: Moderate mitral valve regurgitation is present. Aortic Valve: Post TAVR, mean aortic valve gradient is 3 mmHg with an JACEK of 1.8 cm2. Exam Comments: Patient: LIV LOMBARDI Study Date: 12/20/2017 Page 1 of 2 09:10 AM Transthoracic Echocardiogram, TAVR Successful implantation of the transcutaneous Medtronic Corevalve in the aortic valve position. Post position there is mild AI. No compromise of mitral valve. Preserved LV systolic function. There is no evidence of a pericardial effusion.. (No Signature Object) Patient: LIV LOMBARDI Study Date: 12/20/2017 Page 2 of 2 09:10 AM [id number]
== END 2017-12-22 11:55 | disposition home or self-care (01) | DRG 267 ==
LOC: FCATH 06:59 → F2N 13:06 → F2W 12-21 12:15
PROVIDERS: ADMIT Internal Medicine Cardiovascular Disease; ATTEND Internal Medicine Cardiovascular Disease
PROC: 02RF38Z Replacement of Aortic Valve with Zooplastic Tissue, Percutaneous Approach (ICD-10-PCS; principal; 2017-12-20 08:15)
DX: I35.0 Nonrheumatic aortic (valve) stenosis (principal); Z00.6 Encounter for examination for normal comparison and control in clinical research program; I25.10 Atherosclerotic heart disease of native coronary artery without angina pectoris; I10 Essential (primary) hypertension; I73.9 Peripheral vascular disease, unspecified
CPT/HCPCS: C1725; C1760; C1769; C1894; J0690; J1100; J1644; J2001; J2250; J2370; J2405; J2704; J2720; J3010; J3475; Q9967

== ENCOUNTER 2018-01-05 16:26 | Inpatient (IN) | payer OTHER, MEDICARE ==
--- NOTE | 2018-01-05 16:43 | EDPHY ---
H & P Time Seen by Provider: 01/05/18 16:41 HPI/ROS: CHIEF COMPLAINT: Nausea headache and confusion HISTORY OF PRESENT ILLNESS: Patient had TAVR in December 22. The patient and her says she has been symptomatic ever since. She has intermittent dizziness or loss of balance, more tired and weak, and more confused. She has several specific problems which have been present since her discharge including intermittently slurring her speech including today when she was playing bridge at 2:45 p.m.. She also has had trouble doing simple dexterity tasks such as figuring out the cordwood cutter or zipping up her coat which also happened today. Today she also has a pretty severe generalized headache for the last 2 days. Associated with nausea. Headache not thunderclap in onset or worst of life. Not associated with fever or chills. REVIEW OF SYSTEMS: Eye: no change in vision or double vision ENT: no sore throat Cardiac: no chest pain or syncope Pulmonary: no cough or SOB Abdomen: Nausea and vomiting last night. No diarrhea, abdominal pain Musculoskeletal: No neck pain Skin: no rash Neuro: HPI Constitutional: no fever : no urinary symptoms A comprehensive 10 point review of systems is otherwise negative aside from elements mentioned in the history of present illness. PAST MEDICAL HISTORY: Includes coronary disease with 3 stents in 2007, asthma, COPD. Hypothyroid, aortic stenosis with TAVR on December 22. Social history: Here with her General Appearance: Alert and conversant, cooperative. Eyes: No scleral icterus. ENT, Mouth: Normal mucous membranes. Respiratory: Normal respiratory effort, breath sounds equal, lungs are clear to auscultation. Cardiovascular: Regular rate and rhythm. 3/6 systolic murmur. Gastrointestinal: Abdomen is soft and non tender. Neurological: Alert, face symmetric, normal motor and sensory in extremities. Normal [id number]-[id number] bilaterally. Speech is a little hesitant but she is not slurring on my exam. She is ambulatory and has a negative Romberg. Skin: Warm and dry, no rashes. Musculoskeletal: No peripheral edema. Psychiatric: Not agitated. Emergency Department course/MDM: Patient has had intermittent and persistent symptoms for greater than 2 weeks, is not made a stroke alert because of timing. Pain medication and nausea medication for headache, noncontrast head CT scanning , labs and EKG. Concern for ischemic stroke or hemorrhagic stroke. Admission for worsening neurologic symptoms, consider neurology consultation and MRI. Worsening renal function with creatinine 1.5 reviewed, IV fluids started in the emergency department. 1805: Patient reassessed, feels better, plan for admission discussed and she is in agreement. Smoking Status: Former smoker Constitutional: Initial Vital Signs Temperature (C) 36.4 C 01/05/18 16:28 Heart Rate 85 01/05/18 16:28 Respiratory Rate 18 01/05/18 16:28 Blood Pressure 199/90 H 01/05/18 16:28 O2 Sat (%) 96 01/05/18 16:28 O2 Delivery Mode Room Air Allergies/Adverse Reactions: simvastatin Allergy (Verified 12/20/17 13:16) Other-Enter Comments Home Medications: Medication Instructions Recorded Ezetimibe [Zetia 10 MG (*)] 10 mg PO DAILY 06/17/12 Fenofibrate [Tricor 145 mg (*)] 145 mg PO DAILY 06/17/12 Fexofenadine HCl [Richelle] 180 mg PO DAILY PRN 06/17/12 Levothyroxine [Synthroid 100 mcg 100 mcg PO MOTUTHFRSA@06 06/17/12 (*)] Albuterol Sulfate [Albuterol 1 - 2 puffs IH DAILY PRN 05/06/14 Inhaler Hfa] Budesonide/Formoterol 160/4.5 2 puffs IH BID 05/06/14 [Symbicort 160-4.5 Mcg Inh (*)] Herbals/Supplements -Info Only 1 ea PO DAILY 05/06/14 Multivitamins [Multivitamin (*)] 1 each PO DAILY 05/06/14 Evolocumab [Repatha Sureclick] 140 mg SQ Q14D 10/29/16 C/E/Zn/Cu/OM3/DHA/EPA/LUT/ZEAX 1 each PO BID 11/01/17 [Preservision Areds 2 Softgel] Cholecalciferol Vit D3 [Vitamin D3 5,000 units PO DAILY 11/01/17 (*)] Montelukast Sodium [Singulair 10 10 mg PO DAILY 11/01/17 mg (*)] Omeprazole 40 mg PO DAILY 11/01/17 Rosuvastatin Calcium [Crestor] 5 mg PO DAILY 11/01/17 Fluticasone Hfa 44 Mcg [Flovent 44 2 puffs IH BID 11/02/17 MCG Hfa MDI (*)] Calcium Carb W/Vit D [Calcium Carb 500 mg PO DAILY 12/06/17 W/Vit D 500/200 (*)] Calcium Carbonate [Tums 500MG (*)] 500 mg PO DAILY PRN 12/06/17 Ranitidine HCl [Zantac] 150 mg PO BID PRN 12/06/17 Zolpidem Tartrate [Ambien 5MG (*)] 5 mg PO HS PRN 12/06/17 Acetaminophen [Tylenol 325mg (*)] 650 mg PO Q6HRS tab 12/22/17 Carvedilol [Coreg (*)] 3.125 mg PO BIDMEAL tab 12/22/17 Aspirin EC [Aspirin EC 81 mg (*)] 81 mg PO DAILY 01/05/18 Medical Decision Making - Diagnostics EKG Interpretation: 12-lead EKG interpreted by me; official reading is in computer system. My interpretation is sinus rhythm with left atrial enlargement, late anterior RS transition consistent with old [place]. Imaging Results: Imaging Impressions Chest X-Ray 01/05/18 16:55 Impression: Status post TAVR, with no evidence of congestive heart failure. Note: Please also reference the dictated report of the CT of the chest dated regarding follow-up for a subsolid left lower lobe nodule (which is not apparent on this conventional radiographic study). Head CT 01/05/18 16:55 Impression: Head CT within normal limits. Results called to Dr. Saulo Landeros at 5:35 PM General information for patients regarding this examination can be found at [email or web address]. If you have questions or comments about this report, please contact me at [phone] (hospital) or [phone] (cell). Imaging: Discussed imaging studies w/ at home independent call center agent Radiologist Differential Diagnosis: Differential considered including but not limited to infectious such as UTI, metabolic, ischemic stroke or intracranial hemorrhage Consult/Admit Bed Type: [place] [address] - Data Points Laboratory Results: Laboratory Results 01/05/18 17:05 01/05/18 17:05 01/05/18 01/05/18 01/05/18 17:14 17:05 17:05 WBC RBC Hgb Hct MCV MCH MCHC RDW Plt Count MPV Neut % (Auto) Lymph % (Auto) [place] % (Auto) Eos % (Auto) Baso % (Auto) Nucleat RBC Rel Count Absolute Neuts (auto) Absolute Lymphs (auto) Absolute Monos (auto) Absolute Eos (auto) Absolute Basos (auto) Absolute Nucleated RBC Immature Gran % Immature Gran # PT 14.3 SEC SEC (12.0-15.0) INR 1.09 (0.83-1.16) Sodium 135 mEq/L mEq/L (135-145) Potassium 3.5 mEq/L mEq/L (3.3-5.0) Chloride 95 mEq/L L mEq/L (97-110) Carbon Dioxide 30 mEq/l mEq/l (22-31) Anion Gap 10 mEq/L mEq/L (8-16) BUN 16 mg/dL mg/dL (7-23) Creatinine 1.5 mg/dL H mg/dL (0.6-1.0) Estimated GFR 34 Glucose 125 mg/dL H mg/dL (70-100) Calcium 10.8 mg/dL H mg/dL (8.5-10.4) Phosphorus 4.2 mg/dL mg/dL (2.5-4.5) POC Troponin I 0.04 ng/mL ng/mL (0.00-0.08) Urine Color Urine Appearance Urine pH Ur Specific [place] Urine Protein Urine Ketones Urine Blood Urine Nitrate Urine Bilirubin Urine Urobilinogen Ur Leukocyte Esterase Urine Glucose 01/05/18 01/05/18 17:05 16:40 WBC 7.15 10^3/uL 10^3/uL (3.80-9.50) RBC 3.83 10^6/uL L 10^6/uL (4.18-5.33) Hgb 12.3 g/dL L g/dL (12.6-16.3) Hct 37.0 % L % (38.0-47.0) MCV 96.6 fL fL (81.5-99.8) MCH 32.1 pg pg (27.9-34.1) MCHC 33.2 g/dL g/dL (32.4-36.7) RDW 14.9 % % (11.5-15.2) Plt Count 213 10^3/uL 10^3/uL (150-400) MPV 11.7 fL fL (8.7-11.7) Neut % (Auto) 58.2 % % (39.3-74.2) Lymph % (Auto) 26.3 % % (15.0-45.0) [place] % (Auto) 11.0 % % (4.5-13.0) Eos % (Auto) 3.2 % % (0.6-7.6) Baso % (Auto) 1.0 % % (0.3-1.7) Nucleat RBC Rel Count 0.0 % % (0.0-0.2) Absolute Neuts (auto) 4.16 10^3/uL 10^3/uL (1.70-6.50) Absolute Lymphs (auto) 1.88 10^3/uL 10^3/uL (1.00-3.00) Absolute Monos (auto) 0.79 10^3/uL 10^3/uL (0.30-0.80) Absolute Eos (auto) 0.23 10^3/uL 10^3/uL (0.03-0.40) Absolute Basos (auto) 0.07 10^3/uL 10^3/uL (0.02-0.10) Absolute Nucleated RBC 0.00 10^3/uL 10^3/uL (0-0.01) Immature Gran % 0.3 % % (0.0-1.1) Immature Gran # 0.02 10^3/uL 10^3/uL (0.00-0.10) PT INR Sodium Potassium Chloride Carbon Dioxide Anion Gap BUN Creatinine Estimated GFR Glucose Calcium Phosphorus POC Troponin I Urine Color Pending Urine Appearance Pending Urine pH Pending Ur Specific [place] Pending Urine Protein Pending Urine Ketones Pending Urine Blood Pending Urine Nitrate Pending Urine Bilirubin Pending Urine Urobilinogen Pending Ur Leukocyte Esterase Pending Urine Glucose Pending Medications Given: Discontinued Medications Fentanyl (Sublimaze) 50 mcg IVP EDNOW ONE Stop: 01/05/18 17:03 Last Admin: 01/05/18 17:27 Dose: 50 mcg Sodium Chloride (Ns) 1,000 mls @ 0 mls/hr IV EDNOW ONE; Wide Open PRN Reason: Protocol Stop: 01/05/18 17:56 Last Admin: 01/05/18 18:01 Dose: 1,000 mls Ondansetron HCl (Zofran) 4 mg IVP EDNOW ONE Stop: 01/05/18 17:03 Last Admin: 01/05/18 17:27 Dose: 4 mg Point of Care Test Results: Chemistry 01/05/18 17:14 POC Troponin I 0.04 ng/mL ng/mL (0.00-0.08) Departure - Departure Disposition: [facility] Acute Clinical Impression: Encephalopathy acute, Dizziness, Aphasia, Acute kidney injury Condition: Good
[2018-01-05] MEDS ORDERED: ONDANSETRON 4 MG/2 ML VIAL IVP ONE (17:02)
[2018-01-05] MEDS ORDERED: fentaNYL 100 MCG/2 ML INJ IVP ONE (17:02)
--- NOTE | 2018-01-05 17:20 | CPEKG ---
Test Reason : OPEN Blood Pressure : / mmHG Vent. Rate : 073 BPM Atrial Rate : 073 BPM P-R Int : 178 ms QRS Dur : 110 ms QT Int : 425 ms P-R-T Axes : 051 021 027 degrees QTc Int : 469 ms Sinus rhythm Probable left atrial enlargement Anterior infarct, old Confirmed by Saulo Landeros ([id number]) on 01/05/2018 5:19:23 PM Referred By: Confirmed By:Saulo Landeros
[2018-01-05 17:22] LABS: PLATELET COUNT 213 10^3/uL (150-400)
[2018-01-05 17:50] LABS: INR 1.09 (0.83-1.16); PROTIME(PATIENT) 14.3 SEC (12.0-15.0)
[2018-01-05] MEDS ORDERED: NS 1,000 ML IV ONE (17:55)
[2018-01-05] MEDS ORDERED: HYDROmorphone HCL 0.5 MG/0.5 ML SYR IVP PRN (18:47)
[2018-01-05] MEDS ORDERED: PROMETHAZINE HCL 25 MG/ML INJ IVP PRN (18:47)
[2018-01-05] MEDS ORDERED: oxyCODONE IR 5 MG TAB PO PRN (18:47)
[2018-01-05] MEDS ORDERED: ONDANSETRON DISINTEGRATING 4 MG TAB PO PRN (18:47)
[2018-01-05] MEDS ORDERED: CALCIUM CARBONATE 500 MG CHEWABLE TAB PO PRN (19:06)
[2018-01-05] MEDS ORDERED: ZOLPIDEM TARTRATE 5 MG TAB PO PRN (19:06)
[2018-01-05] MEDS ORDERED: FAMOTIDINE 20 MG TAB PO PRN (19:06)
[2018-01-05] MEDS ORDERED: CETIRIZINE 10 MG TAB PO PRN (19:06)
[2018-01-05] MEDS: ACETAMINOPHEN 325 MG TAB PO PRN (21:26)
[2018-01-05] MEDS: ONDANSETRON 4 MG/2 ML VIAL IVP PRN (21:26)
--- NOTE | 2018-01-05 21:32 | PDGENHP ---
History and Physical - Chief Complaint speech difficulty - History of Present Illness Patient is a 77 year old female with a hx of aortic stenosis s/p TAVR several weeks ago who is presenting with speech difficulties and 'feeling dumb' since the procedure. She notes that she initially had trouble swallowing as well, but that improved and she thought it was due to being intubated for the procedure. She did however continue to have difficulties both with finding words and with forming words that have continued until now. She also has had headaches nearly daily since the procedure. She feels as if she is overall not thinking right. She feels her gait is unsteady and her vision is more blurry than usual also. She has no numbness or weakness that she appreciates, she has not had urinary issues, she has had chills but no fever. She denies chest pain, sob or GI issues. She has never had similar issues in the past. History Information - Allergies/Home Medication List Allergies/Adverse Reactions: simvastatin Allergy (Verified 12/20/17 13:16) Other-Enter Comments Home Medications: Ezetimibe [Zetia 10 MG (*)] 10 mg PO DAILY 06/17/12 [Last Taken 01/05/18] Fenofibrate [Tricor 145 mg (*)] 145 mg PO DAILY 06/17/12 [Last Taken 01/05/18] Fexofenadine HCl [Richelle] 180 mg PO DAILY PRN 06/17/12 [Last Taken 01/05/18] Levothyroxine [Synthroid 100 mcg (*)] 100 mcg PO MOTUTHFRSA@06 06/17/12 [Last Taken 1 Week Ago ~12/29/17] Albuterol Sulfate [Albuterol Inhaler Hfa] 1 - 2 puffs IH DAILY PRN 05/06/14 [ Last Taken 01/03/18] Budesonide/Formoterol 160/4.5 [Symbicort 160-4.5 Mcg Inh (*)] 2 puffs IH BID 11/10 [Last Taken 01/05/18 09:00] Herbals/Supplements -Info Only 1 ea PO DAILY 05/06/14 [Last Taken 12/19/17 08:00 ] Multivitamins [Multivitamin (*)] 1 each PO DAILY 05/06/14 [Last Taken 01/05/18] Evolocumab [Repatha Sureclick] 140 mg SQ Q14D 10/29/16 [Last Taken 12/25/17] C/E/Zn/Cu/OM3/DHA/EPA/LUT/ZEAX [Preservision Areds 2 Softgel] 1 each PO BID 09/13 [Last Taken 01/05/18 09:00] Cholecalciferol Vit D3 [Vitamin D3 (*)] 5,000 units PO DAILY 11/01/17 [Last Taken 01/05/18] Montelukast Sodium [Singulair 10 mg (*)] 10 mg PO DAILY 11/01/17 [Last Taken 01/13] Omeprazole 40 mg PO DAILY 11/01/17 [Last Taken 01/05/18] Rosuvastatin Calcium [Crestor] 5 mg PO DAILY 11/01/17 [Last Taken 01/05/18 09:00 ] Fluticasone Hfa 44 Mcg [Flovent 44 MCG Hfa MDI (*)] 2 puffs IH BID 11/02/17 [ Last Taken 1 Week Ago ~12/29/17] Calcium Carb W/Vit D [Calcium Carb W/Vit D 500/200 (*)] 500 mg PO DAILY [Last Taken 01/05/18] Calcium Carbonate [Tums 500MG (*)] 500 mg PO DAILY PRN 12/06/17 [Last Taken 11/13] Ranitidine HCl [Zantac] 150 mg PO BID PRN 12/06/17 [Last Taken 01/03/18] Zolpidem Tartrate [Ambien 5MG (*)] 5 mg PO HS PRN 12/06/17 [Last Taken 2 Weeks Ago ~12/22/17] Aspirin EC [Aspirin EC 81 mg (*)] 81 mg PO DAILY 01/05/18 [Last Taken 01/05/18 09:00] I have personally reviewed and updated: family history, medical history, social history, surgical history - Past Medical History coronary artery disease, COPD, hyperlipidemia Additional medical history: moderate-severe aortic stenosis--sp TAVR, CAD s/p RCA stents in 2007, COPD (wears nocturnal O2), hyperlipidemia (followed by Dr Lacey at [facility]) - Surgical History Additional surgical history: TAVR. Previous shoulder surgery. - Family History Positive for: non-pertinent Additional family history: At this point is noncontributory. - Social History Smoking Status: Former smoker Alcohol Use: Rarely Drug Use: None Additional social history: lives with Review of Systems Review of Systems: ROS: 10pt was reviewed & negative except for what was stated in HPI & below Physical Exam Physical Exam: Temp Pulse Resp BP Pulse Ox 37.0 C 76 16 171/74 H 90 L 01/05/18 21:02 01/05/18 21:02 01/05/18 21:02 01/05/18 21:02 01/05/18 21:02 Constitutional: no apparent distress, appears nourished Eyes: PERRL Ears, Nose, Mouth, Throat: moist mucous membranes, oral thrush Cardiovascular: regular rate and rhythym, no murmur, rub, or gallop, No edema Respiratory: no respiratory distress, no rales or rhonchi Gastrointestinal: normoactive bowel sounds, soft, non-tender abdomen Genitourinary: no bladder tenderness Skin: warm, normal color Musculoskeletal: full muscle strength, no muscle tenderness Neurologic: AAOx3, CN II-XII Intact, other (speech occasionally slurred, slight expressive aphasia), No weakness, No numbness Psychiatric: interacting appropriately, not anxious, not encephalopathic Lab Data & Imaging Review 01/05/18 17:05 01/05/18 17:05 WBC 7.15 10^3/uL (3.80-9.50) 01/05/18 17:05 RBC 3.83 10^6/uL (4.18-5.33) L 01/05/18 17:05 Hgb 12.3 g/dL (12.6-16.3) L 01/05/18 17:05 Hct 37.0 % (38.0-47.0) L 01/05/18 17:05 MCV 96.6 fL (81.5-99.8) 01/05/18 17:05 MCH 32.1 pg (27.9-34.1) 01/05/18 17:05 MCHC 33.2 g/dL (32.4-36.7) 01/05/18 17:05 RDW 14.9 % (11.5-15.2) 01/05/18 17:05 Plt Count 213 10^3/uL (150-400) 01/05/18 17:05 MPV 11.7 fL (8.7-11.7) 01/05/18 17:05 Neut % (Auto) 58.2 % (39.3-74.2) 01/05/18 17:05 Lymph % (Auto) 26.3 % (15.0-45.0) 01/05/18 17:05 Maries % (Auto) 11.0 % (4.5-13.0) 01/05/18 17:05 Eos % (Auto) 3.2 % (0.6-7.6) 01/05/18 17:05 Baso % (Auto) 1.0 % (0.3-1.7) 01/05/18 17:05 Nucleat RBC Rel Count 0.0 % (0.0-0.2) 01/05/18 17:05 Absolute Neuts (auto) 4.16 10^3/uL (1.70-6.50) 01/05/18 17:05 Absolute Lymphs (auto) 1.88 10^3/uL (1.00-3.00) 01/05/18 17:05 Absolute Monos (auto) 0.79 10^3/uL (0.30-0.80) 01/05/18 17:05 Absolute Eos (auto) 0.23 10^3/uL (0.03-0.40) 01/05/18 17:05 Absolute Basos (auto) 0.07 10^3/uL (0.02-0.10) 01/05/18 17:05 Absolute Nucleated RBC 0.00 10^3/uL (0-0.01) 01/05/18 17:05 Immature Gran % 0.3 % (0.0-1.1) 01/05/18 17:05 Immature Gran # 0.02 10^3/uL (0.00-0.10) 01/05/18 17:05 PT 14.3 SEC (12.0-15.0) 01/05/18 17:05 INR 1.09 (0.83-1.16) 01/05/18 17:05 Sodium 135 mEq/L (135-145) 01/05/18 17:05 Potassium 3.5 mEq/L (3.3-5.0) 01/05/18 17:05 Chloride 95 mEq/L (97-110) L 01/05/18 17:05 Carbon Dioxide 30 mEq/l (22-31) 01/05/18 17:05 Anion Gap 10 mEq/L (8-16) 01/05/18 17:05 BUN 16 mg/dL (7-23) 01/05/18 17:05 Creatinine 1.5 mg/dL (0.6-1.0) H 01/05/18 17:05 Estimated GFR 34 01/05/18 17:05 Glucose 125 mg/dL (70-100) H 01/05/18 17:05 Calcium 10.8 mg/dL (8.5-10.4) H 01/05/18 17:05 Phosphorus 4.2 mg/dL (2.5-4.5) 01/05/18 17:05 POC Troponin I 0.04 ng/mL (0.00-0.08) 01/05/18 17:14 TSH 6.400 uIU/mL (0.465-4.680) H 01/05/18 17:05 Urine Color YELLOW 01/05/18 19:35 Urine Appearance CLEAR 01/05/18 19:35 Urine pH 6.0 (5.0-7.5) 01/05/18 19:35 Ur Specific [place] 1.010 (1.002-1.030) 01/05/18 19:35 Urine Protein NEGATIVE (NEGATIVE) 01/05/18 19:35 Urine Ketones NEGATIVE (NEGATIVE) 01/05/18 19:35 Urine Blood NEGATIVE (NEGATIVE) 01/05/18 19:35 Urine Nitrate NEGATIVE (NEGATIVE) 01/05/18 19:35 Urine Bilirubin NEGATIVE (NEGATIVE) 01/05/18 19:35 Urine Urobilinogen NEGATIVE EU (0.2-1.0) 01/05/18 19:35 Ur Leukocyte Esterase TRACE (NEGATIVE) H 01/05/18 19:35 Urine RBC 1-3 /hpf (0-3) 01/05/18 19:35 Urine WBC 3-5 /hpf (0-3) H 01/05/18 19:35 Ur Epithelial Cells TRACE /lpf (NONE-1+) 01/05/18 19:35 Urine Mucus TRACE /lpf (NONE-1+) 01/05/18 19:35 Urine Glucose NEGATIVE (NEGATIVE) 01/05/18 19:35 Visualized and Interpreted Chest x-ray results: Yes Chest X-Ray results: no infiltrate Visualized and Interpreted imaging results: Yes Interpretation: head CT: no bleed or masses Visualized and Interpreted EKG results: Yes EKG Interpretation: Positive for: normal sinsus rhythm Assessment & Plan Assessment: Acute kidney injury (Acute) Aphasia (Acute) Dizziness (Acute) Encephalopathy acute (Acute) 77 yo F with hx of CAD, VHD s/p TAVR on 12/22 presenting with expressive aphasia and dysarthria present for the last several weeks # expressive aphasia/dysarthria: with complaints also of difficulty with ambulation and with fine motor skills all of which present since TAVR, concerning for subacute CVA. Head CT without e/o bleed, brain MRI ordered as well as neurology consultation. Will monitor on tele, echo in the am and will defer further imaging to neurology. Given prolonged sxs TPA not indicated. # thrush: patient with white lesions on tongue and buccal mucosa concerning for oral thrush, started nystatin and will need to f/u in am # VHD: with hx of moderate to severe now s/p TAVR in November, repeat echo in am, no s/s of CHF at this time # CAD: with hx of stent, will continue op medications # COPD: without e/o acute exacerbation, continued on her home inhalers, O2 sats are > 90 on RA # observation status, suspect will require < 48 hours stay for eval/mgmt of above Patient new to my care. Old records reviewed and summarized as above. Care plan reviewed with ER doctor including w/u for stroke.
[2018-01-05] MEDS: PRESERVISION AREDS2 FORMULA EYE VIT 1 EACH PO SCH (21:41)
[2018-01-05] MEDS: BUDESONIDE/FORMOTEROL 160/4.5 60 PUFFS/MDI IH SCH (21:42)
[2018-01-05] MEDS: FLUTICASONE HFA 44 MCG MDI IH SCH (21:42)
[2018-01-05] MEDS: NYSTATIN SUSP 500000 UNIT/5 ML UD LIQ PO SCH (21:46)
[2018-01-05] MEDS: CARVEDILOL 3.125 MG TAB PO SCH (21:46)
[2018-01-05] MEDS ORDERED: HYDROmorphONE/DILAUDID 2 MG/ML INJ IVP PRN (23:36)
[2018-01-06] MEDS ORDERED: ENOXAPARIN 60 MG/0.6 ML SYR SC SCH (00:30)
[2018-01-06] MEDS: ACETAMINOPHEN 325 MG TAB PO SCH ×4 (00:32→18:33)
--- NOTE | 2018-01-06 01:17 | HOSPPROG ---
Hospitalist Progress Note Assessment/Plan: Hospitalist Night Float Note Notified by Dr. Olivas with radiology regarding patient MRI findings ordered by Dr. Acuña reporting showered emboli infra/supratentorial with largest lesion right cerebellum. recs repeat CT tomorrow. Arrived to bedside and discussed findings with patient. Reviewed option for therapeutic anticoagulation tonight and risk/benefits. patient was amenable to proceed. Echo ordered for AM. patient with recent TAVR initially femoral approach converted to carotid. PT/OT/ST and stroke protocol in place. Patient also c/o intermittent occipital headaches. reviewed patient prn pain medication options. neuro consulted for AM. Repeat CT tomororw. Objective: Vital Signs Temp Pulse Resp BP Pulse Ox 37.0 C 75 16 171/74 H 90 L 01/05/18 21:02 01/05/18 21:46 01/05/18 21:02 01/05/18 21:46 01/05/18 21:02 01/04/18 01/05/18 01/06/18 05:59 05:59 05:59 Intake Total 1000 Balance 1000 PT 14.3 SEC (12.0-15.0) 01/05/18 17:05 INR 1.09 (0.83-1.16) 01/05/18 17:05 ICD10 Worksheet Patient Problems: Problems Problem Status Onset Acute kidney injury Acute Aphasia Acute Dizziness Acute Encephalopathy acute Acute Dyspnea Acute Shortness of breath Acute
[2018-01-06] MEDS: HYDROCODONE/APAP 5/325 TAB PO PRN ×2 (02:14→20:12)
[2018-01-06] MEDS: ACETAMINOPHEN 325 MG TAB PO PRN (03:46)
[2018-01-06] MEDS: LEVOTHYROXINE 100 MCG TAB PO SCH (05:17)
[2018-01-06] MEDS: NYSTATIN SUSP 500000 UNIT/5 ML UD LIQ PO SCH ×4 (05:17→20:13)
[2018-01-06 06:48] LABS: PLATELET COUNT 162 10^3/uL (150-400)
[2018-01-06] MEDS: ONDANSETRON 4 MG/2 ML VIAL IVP PRN (07:32)
--- NOTE | 2018-01-06 07:48 | GCON ---
CARDIOLOGY CONSULT CHIEF COMPLAINT: Nausea, vomiting, hypertension. HISTORY OF PRESENT ILLNESS: This is a 77-year-old female who underwent transcarotid TAVR approximate ly 2-1/2 weeks ago at [facility] secondary to severe symptomatic . 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 The patient initially had attempts at a transfemoral TAVR, however, due to the excessive calcification in the ascending aorta and aortic root, the valve could not be delivered successfully, thus, we switched to a transcarotid access and delivered the valve successfully. The patient actually was discharged within 48 hours after the procedure with no significant neurologic is sues or deficits. However, in the last 3 days, the patient has been complaining of increasing nausea , blurry vision, as well as intermittent slurred speech. The patient called our office yesterday and was instructed to come to the emergency room. The patient in the emergency room was found to have a blood pressure of 200/100, though with no new focal neurologic deficits with a negative head CT. Th is was followed up with a MRI of the head, which did show acute/subacute shower emboli involving the infra and supratentorial structures with an area of large infarction in the right cerebellum. Of not e also, the patient's creatinine had elevated to 1.5 yesterday, but is down to 1.2 today: The patien t is resting quietly in her bed. She denies any new discomfort from yesterday. She actually feels b errol since arriving in the hospital, blood pressure is still elevated, but slightly less than yester day at 162/70, the heart rate 72. Of note, ECG shows sinus rhythm, left bundle branch block, which w as noted on our office ECG last week as well. No evidence of atrial fibrillation has been seen on te lemetry. PAST MEDICAL HISTORY: PAD, hypertension, aortic stenosis. PAST SURGICAL HISTORY: Recent TAVR by the transcarotid approach within the last month. SOCIAL HISTORY: Patient is . No current smoking. Occasional alcohol use. HOME MEDICATIONS: Please see patient's home attached medication list. REVIEW OF SYSTEMS: Patient currently indicates having occasional blurry vision, no headache currentl y, but did have a significant headache yesterday. Does have some mild throat discomfort with swallow ing. No ear pain. No neck pain other than the aforementioned throat issue. No chest pain. No shor tness of breath. No back pain. No abdominal discomfort. No lower extremity pain. No neurologic de ficits. PHYSICAL EXAM: VITAL SIGNS: Patient currently afebrile, 96, blood pressure currently 160/70, with a heart rate 12, respiratory rate 12, satting 95% on room air. HEENT: Pupils equal, round and reacti ve to light and accommodation. Extraocular movements intact. CARDIOVASCULAR: Regular rate and rhyt hm, S1, S2, 2/6 soft systolic murmur, heard best at the right upper sternal border. LUNGS: Clear to auscultation bilaterally. ABDOMEN: Soft, nontender, no guarding. EXTREMITIES: No clubbing, no cyanosis, no edema. NEUROLOGIC: The patient does not have any gross f ocal neuro deficits. LABORATORY VALUES: Currently show a white cell 4.9, hemoglobin 10.1, hematocrit 31, platelet count 1 62. Sodium 135, potassium 3.3, chloride 99, CO2 28, BUN 13, creatinine 1.2. ECG shows normal sinus rhythm, left bundle branch block. No acute ST changes. ASSESSMENT/PLAN: Cerebrovascular accident. At this time, the patient is clinically stable and does not have any new gross neurologic deficits. She clearly has evidence on MRI of a shower emboli which is most likely from her heavily calcified porcelain ascending descending aorta. Additionally, her r enal dysfunction could most likely be from also atheroemboli given the heavy calcification of her inf rarenal aorta as well as her ascending aorta and catheterization was done on both ends of her aortic circulation. The patient has been urinating without issues and the creatinine is down to 1.2. I fee l that we can continue to manage this medically. Obviously we would like to get her blood pressure c ontrolled, but given her current MRI findings, we will defer to Neurology about temperance of blood p ressure reduction. We will follow along with you peripherally. Please feel free to call us with any questions. Additionally, echocardiogram has been ordered for this a.m. as well. /[id number]/MODL
[2018-01-06] MEDS: CARVEDILOL 3.125 MG TAB PO SCH (08:33)
[2018-01-06] MEDS: MULTIVITAMINS 1 EACH TAB PO SCH (08:33)
[2018-01-06] MEDS: CHOLECALCIFEROL VIT D3 2,000 UNITS TAB/CAP PO SCH (08:33)
[2018-01-06] MEDS: PRESERVISION AREDS2 FORMULA EYE VIT 1 EACH PO SCH ×2 (08:33→20:12)
[2018-01-06] MEDS: FENOFIBRATE 145 MG TAB PO SCH (08:34)
[2018-01-06] MEDS: ROSUVASTATIN CALCIUM 10 MG TAB PO SCH (08:34)
[2018-01-06] MEDS: EZETIMIBE 10 MG TAB PO SCH (08:34)
[2018-01-06] MEDS: PANTOPRAZOLE SODIUM 40 MG TAB PO SCH (08:34)
[2018-01-06] MEDS: CALCIUM CARB W/VIT D 500 MG TAB PO SCH (08:34)
[2018-01-06] MEDS: MONTELUKAST SODIUM 10 MG TAB PO SCH (08:34)
[2018-01-06] MEDS ORDERED: ENOXAPARIN 30 MG/0.3 ML SYR SC SCH (09:00)
[2018-01-06] MEDS ORDERED: ASPIRIN EC 81 MG TAB PO SCH (09:00)
[2018-01-06] MEDS ORDERED: ASPIRIN 81 MG CHEWABLE TAB PO SCH (09:00)
--- NOTE | 2018-01-06 09:05 | ECHO ---
[email or web address] [address] [address] Main: [phone] Fax: Transthoracic Echocardiogram Name: LIV LOMBARDI MR#: [id number] Study Date: 01/06/2018 Study Time: 08:00 AM Date of : 1940 Age: 77 year(s) Height: 152.4 cm (60 in.) Weight: 58.51 kg (129 lb.) BSA: 1.55 m2 Gender: Female Examination: Echo with Agitated Saline Indication: Ischemic Stroke Image Quality: Adequate Contrast: Requested by: Roberto Acuña BP: 142 mmHg/66 mmHg Heart Rate: Rhythm: Indication: Ischemic Stroke Procedure Staff Lcac Radar Operator/Navigator: Jerica Soelr RDCS Reading Physician: Jose E Mathews MD Requesting Provider: Conclusions: Normal global systolic LV function. EF is 64 %. An agitated saline study was performed and was negative for intracardiac shunting. Moderate mitral valve leaflet calcification is present. Moderate to severe mitral regurgitation. The aortic valve is a bioprosthesis. The prosthetic aortic valve regurgitation location is perivalvular. Mild prosthesis regurgitation. Mild to moderate tricuspid valve regurgitation. Right ventricular systolic pressure measures 51mmHg. No pericardial effusion. Measurements: Chambers Valvular Assessment AV/MV Valvular Assessment TV/PV Normal Normal Normal Name Value Range Name Value Range Name Value Range Ao Mulu (2D): 2.4 cm (1.4 cm-2.6 AV Vmax: 1.55 m/s (1 m/s-1.7 TR Vmax: 3.39 mm/s ( - ) cm) m/s) TR PGmax: 46 mmHg ( - ) IVSd (2D): 1.3 cm (0.6 cm-1.1 AV maxP mmHg ( - ) syst. PAP: 51 mmHg ( - ) cm) AV meanP mmHg ( - ) PV Vmax: 0.66 m/s (0.6 m/s-0.9 LVDd (2D): 4.8 cm (3.9 cm-5.3 JACEK (VTI): 1.4 cm ( - ) m/s) cm) MV E Vmax: 1.16 m/s ( - ) PV PGmax: 2 mmHg ( - ) LVDs (2D): 3.1 cm (2.1 cm-4 MV A Vmax: 1.06 m/s ( - ) cm) MV E/A: 1.09 ( - ) LVPWd (2D): 1.2 cm ( - ) MV meanP mmHg ( - ) LVOTd 1.7 cm 1.7 cm mm MV PHT: 0.059 s ( - ) LVEF (BP): 64 % (>=55 %) MVA (Vmax): 1.5 m/s ( - ) RVDd(2D): 2.3 cm (1.9 cm-3.8 cmmm) MVA (PHT): 3.7 s ( - ) Patient: LIV LOMBARDI Study Date: 01/06/2018 Page 1 of 2 08:00 AM Continued Measurements: Chambers Valvular Assessment AV/MV Valvular Assessment TV/PV Name Value Name Value Name Value LADs: 4.1 cm MV DecTime: 187 m/s CVP (est.): 5 mmHg LADs Lon.0 cm MV E' Septal: 0.05 m/s LA Area: 21.6 cm2 MV E/E' Septal: 23.30 LA Volume: 63 ml MV E/E' Lateral: 15.90 LA Volume Index: 40.6 ml/m2 MV VTI: 34.40 cm RA Area: 13.7 cm2 MR ERO: 0.360 cm2 MR PISA radius: 9 mm MR Reg. Volume: 68 ml Additional Vessels Name Value Inferior Vena Cava: 1.5 cm Findings: Left Ventricle: Normal size left ventricle. Concentric LV hypertrophy. Normal global systolic LV function. EF is 64 %. No regional wall motion abnormality. Grade 2 diastolic dysfunction (pseudonormalized LV filling pattern). Right Ventricle: Normal size right ventricle. Normal RV function. Left Atrium: The left atrium is mildly dilated. An agitated saline study was performed and was negative for intracardiac shunting. Right Atrium: The right atrium is normal in size. Mitral Valve: The mitral valve is normal in appearance and function. Moderate mitral valve leaflet calcification is present. No mitral stenosis is present. Moderate to severe mitral regurgitation. Aortic Valve: The aortic valve is a bioprosthesis. Normal functioning aortic valve prosthesis. The prosthetic aortic valve is normal. The orifice motion of the prosthetic aortic valve is normal. No prosthesis stenosis. The prosthetic aortic valve regurgitation location is perivalvular. Mild prosthesis regurgitation. Tricuspid Valve: The tricuspid valve is normal in appearance and function. Mild to moderate tricuspid valve regurgitation. The pulmonary artery pressure is moderately increased. Right ventricular systolic pressure measures 51mmHg. Pulmonic Valve: The pulmonic valve is normal in appearance and function. There is no pulmonic regurgitation seen. Aorta: The aorta is normal. Normal size aortic root measuring 2.4 cm. IVC: The IVC is normal sized. Pericardium: No pericardial effusion. No pleural effusion. (No Signature Object) Patient: LIV LOMBARDI Study Date: 01/06/2018 Page 2 of 2 08:00 AM [id number]
[2018-01-06] MEDS: BUDESONIDE/FORMOTEROL 160/4.5 60 PUFFS/MDI IH SCH ×2 (09:09→20:13)
[2018-01-06] MEDS: FLUTICASONE HFA 44 MCG MDI IH SCH ×2 (09:09→21:01)
--- NOTE | 2018-01-06 10:25 | NEUROPROG ---
Assessment: [id number] - Neurology Consult: - CC: Stroke - HPI: Pt with aortic stenosis s/p TVAR several weeks ago presented to [facility] on 01/05/18 with speech difficulties, headaches, and feeling dumb since the procedure. She also had some problems swallowing but this resolved. A brain MRI wo showed bilateral small strokes subcortically and in the right cerebellum that are acute to subacute in time. Pt also had elevated creatinine. Dr. Mathews ( vp product management who performed TVAR) saw the patient and felt that her heavily calcified porcelain ascending descending aorta was the likely source of her shower emboli. I initially saw the patient on 01/06/18. Her neurologic exam was normal but she said she felt slightly groggy and felt her vision was slightly blurry in both eyes but she was feeling better. I felt the recent cardiac procedure in the presence of her heavily calcified aorta was likely the source of her stroke so no additional w/u needed at this time. We discussed changing aspirin to plavix but she reported severe bruising on plavix and declined this medication. I advised to increase aspirin to 325 mg qd. - PMHx: aortic stenosis s/p TAVR, COPD, CAD, HLD - SHx: former tobacco user FHx: NC - ROS: Pt denied acute fever, total vision loss, active severe chest pain, respiratory failure, total body severe rash, total bowel/bladder incontinence, psychosis, active seizures, or active bleeding - O: VS reviewed General: Alert Eyes: Fundoscopic exam not able to visualize optic disks CV: Heart RRR, no murmur, no carotid bruit Lungs: Clear to auscultation bilaterally, no rhonchi or rales Neuro: - Mental: . Oriented x person/place/date . concentration appears normal . speech fluency/comprehension normal . memory appears normal . fund of knowledge appear intact - Cranial Nerves: . II: PERRL, VFFTC . III/IV/: EOMI, no nystagmus, normal smooth pursuits, no Ptosis . V: facial sensation intact to LT . VII: face symmetric to eye closure and smile . VIII: hearing intact to conversation . IX/X: uvula raises symmetrically . XI: SCM 5/5 B/L strength . XII: tongue protrudes midline w/nl strength - Motor: . Tone: normal tone in all 4 extremity . Strength: no pronator drift, strength 5/5 throughout (B/L delt, bic, tri, hand escrow assistant, hf/he, df/pf) - Reflexes: B/L bic/BR/patella 2/4 - Sensory: all 4 extremity intact to light touch - Coord: [id number] wnl, JARVIS wnl, [id number] wnl - Gait: deferred - NIH SS 0 - Labs: 12/03/17- LDL 38L 01/06/18- CBC Hct 31.3L, INR 1.09, Chem Cr 1.2H Gluc 101 - Rads: 01/05/18- Brain MRI wo: acute to subacute small strokes in bilateral subcortical region and right cerebellum, mild-mod CMVD (I personally visualized the images on 01/06/18) - 01/06/18- TTE: EF 64%, no intracardiac shunting, AV bioprosthesis location is perivalvular, no cardiac thormbus notes - Assessment: 1. 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 Pt with TVAR in November 2017 and cardiology felt that heavily calcified porcelain ascending descending aorta was the likely source of her shower emboli that occurred around the time of the procedure. Therefore anticoagulation not needed. Recommend changing aspirin 81 mg qd (stroke seemed to occur on aspirin) to 325 mg qd and controlling stroke risk factors (HTN, HLD, blood sugar). Pt declined adding plavix as she had severe bruising from it in the past. - Plan: - Repeat head CT scheduled for 01/06/18 to ensure no hemorrhagic conversion or hydrocephalus from right cerebellar stroke - Change aspirin 81 mg qd to aspirin 325 mg qd for stroke prevention (stroke seemed to occur on aspirin 81 mg qd so will increase antiplatelet strength) - Blood pressure goal < 140/90 - LDL goal < 70 (pt on statin, LDL 38 on 12/03/17) - H1AC goal < 7.0 - PT/OT/Speech to determine rehab needs - F/U in neurology clinic 1-4 weeks after hospital discharge Objective: Vital Signs Temp Pulse Resp BP Pulse Ox 36.6 C 81 17 142/66 H 92 01/06/18 07:06 01/06/18 08:33 01/06/18 07:06 01/06/18 08:33 01/06/18 07:06 Laboratory Results 01/06/18 05:29 01/06/18 05:29 01/05/18 01/06/18 01/07/18 05:59 05:59 05:59 Intake Total 1000 Output Total 500 250 Balance 500 -250 PT 14.3 SEC (12.0-15.0) 01/05/18 17:05 INR 1.09 (0.83-1.16) 01/05/18 17:05 Allergies/Adverse Reactions: simvastatin Allergy (Verified 12/20/17 13:16) Other-Enter Comments
[2018-01-06] MEDS ORDERED: MAGNESIUM SULF 2 GM/WATER 50 ML IV ONE (11:33)
[2018-01-06] MEDS ORDERED: hydrALAZINE 20 MG/ML VIAL IVP PRN (11:35)
[2018-01-06] MEDS ORDERED: POTASSIUM CL 20 MEQ/15 ML UDCUP PO ONE (11:41)
[2018-01-06] MEDS ORDERED: amLODIPine BESYLATE 5 MG TAB PO SCH (11:45)
--- NOTE | 2018-01-06 11:53 | ASMTCMCOM ---
CM Note CM Note Notes: Pt is a 77 y/o female admitted for speech difficulty. Pt had an aortic stenosis s/p TAVR several weeks ago. Pt reported feeling not like herself since then. PT has cleared pt to d/c home with outpatient rehab follow up. OT and SPL are still pending. Neurology have been consulted. Pt will most likely d/c independent without any needs. CM available for changes. Date Signed: 01/06/2018 11:52 AM Electronically Signed By:MAYLIN Rosario
--- NOTE | 2018-01-06 12:27 | HOSPPROG ---
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 -Neuro following -She cannot tolerate Plavix -LDL goal is less than 70 and she is currently at goa -SBP less than 140 (see below) -A1C less than 7. 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 Change to inpatient. Repeat CT brain is pending, will follow Subjective: Feels better, but still weak. no problems speaking. no cp or sob. Objective: Vital Signs Temp Pulse Resp BP Pulse Ox 36.6 C 81 17 142/66 H 92 01/06/18 07:06 01/06/18 08:33 01/06/18 07:06 01/06/18 08:33 01/06/18 07:06 Laboratory Results 01/06/18 05:29 01/06/18 05:29 01/05/18 01/06/18 01/07/18 05:59 05:59 05:59 Intake Total 1000 Output Total 500 250 Balance 500 -250 PT 14.3 SEC (12.0-15.0) 01/05/18 17:05 INR 1.09 (0.83-1.16) 01/05/18 17:05 - Physical Exam Constitutional: no apparent distress Eyes: PERRL Ears, Nose, Mouth, Throat: moist mucous membranes, hearing normal Cardiovascular: regular rate and rhythym Respiratory: no respiratory distress, no rales or rhonchi, clear to auscultation Gastrointestinal: normoactive bowel sounds, soft, non-tender abdomen Skin: warm Musculoskeletal: generalized weakness Neurologic: AAOx3 Psychiatric: interacting appropriately, not anxious, not encephalopathic Lymph, Heme, Immunologic: No petechiae ICD10 Worksheet Patient Problems: Problems Problem Status Onset Acute kidney injury Acute Aphasia Acute Dizziness Acute Encephalopathy acute Acute Dyspnea Acute Shortness of breath Acute
[2018-01-06] MEDS ORDERED: NS W/ 20 KCl/L 1,000 ML IV SCH (12:30)
[2018-01-06] MEDS: ENOXAPARIN 60 MG/0.6 ML SYR SC SCH ×2 (12:56→20:13)
--- NOTE | 2018-01-06 14:35 | PDMN ---
Medical Necessity Medical necessity: Change to IP, as of 01/06/18, per MD & MCG M-83; los >2 mn for ongoing management of subacute bilateral subcortical & R cerebellar strokes w/dizziness, aphasia, generalized weakness, HTN & TIMUR; requiring further monitoring, med management, IVFs & therapies; comorbid advanced age, recent TAVR , COPD, CAD
[2018-01-06] MEDS ORDERED: CARVEDILOL 6.25 MG TAB PO SCH (18:00)
[2018-01-06] MEDS ORDERED: METOPROLOL TARTRATE 25 MG TAB PO SCH (21:00)
[2018-01-07] MEDS: ACETAMINOPHEN 325 MG TAB PO SCH ×2 (00:09→06:21)
[2018-01-07] MEDS ORDERED: ALBUTEROL 3 ML DEYVIAL ONE (04:51)
[2018-01-07] MEDS: ALBUTEROL 3 ML DEYVIAL IH PRN ×2 (05:00→09:21)
[2018-01-07] MEDS: NYSTATIN SUSP 500000 UNIT/5 ML UD LIQ PO SCH (06:21)
[2018-01-07] MEDS: LEVOTHYROXINE 100 MCG TAB PO SCH (06:21)
[2018-01-07 06:33] LABS: PLATELET COUNT 125 10^3/uL (150-400)
--- NOTE | 2018-01-07 07:15 | PDCARPN ---
Cardiology Progress Note Chief Complaint: nausea/blurry vision Assessment/Plan: Assessment: s/p cerebellar CVA TAVR HTN Plan: 01/07/18 07:12 CT findings noted d/w neurology--continue current therapy Continue to titrate up BP meds--plan d/c with lopressor 25 mg po bid and norvasc 10 mg po qd (stop coreg) patient feels much better renal function stable OK from CV perspective to d/c home today--we will f/u closely as outpatient continue Mg oxide 01/07/18 07:13 Subjective: feels better Reviewed/Discussed With: multidisciplinary team Time Spent with Patient: greater than 25 minutes Time Spent with Patient: Greater than 25 minutes spent on this patients care, greater than 50% of time spent counseling, educating, and coordinating care regarding the above mentioned plan. Objective: Vital Signs (8 Hrs) Temp Pulse Resp BP Pulse Ox 01/07/18 04:55 86 20 94 01/07/18 03:49 36.5 C 87 16 159/85 H 90 L 01/06/18 23:35 36.9 C 84 18 160/89 H 91 L Intake/Output (24 Hrs) 01/06/18 01/07/18 01/08/18 05:59 05:59 05:59 Intake Total 500 800 Output Total 600 Balance -100 800 Intake: Oral (ml) 500 IV Infused (ml) 800 NS W/ 20 KCl/L 1,000 ml @ 800 75 mls/hr IV CONT SONA Rx #:[id number] Output: Urine (ml) 600 Toilet 600 Other: Intake Quantity Yes Sufficient Result Diagrams: 01/07/18 06:00 01/07/18 03:33 - Physical Exam Constitutional: healthy appearing Eyes: PERRL Ears, Nose, Mouth, Throat: moist mucous membranes Cardiovascular: regular rate and rhythm, systolic murmur Peripheral Pulses: 1+: femoral (R), femoral (L) Respiratory: clear to auscultate bilat Gastrointestinal: normoactive bowel sounds Genitourinary: no suprapubic tenderness Skin: no rashes Musculoskeletal: no muscular tenderness Neurologic: AAOx3 Psychiatric: cooperative ICD10 Worksheet Patient Problems: Problems Problem Status Onset Acute kidney injury Acute Aphasia Acute Dizziness Acute Encephalopathy acute Acute Dyspnea Acute Shortness of breath Acute
[2018-01-07] MEDS: CHOLECALCIFEROL VIT D3 2,000 UNITS TAB/CAP PO SCH (08:09)
[2018-01-07] MEDS: MONTELUKAST SODIUM 10 MG TAB PO SCH (08:10)
[2018-01-07] MEDS: MULTIVITAMINS 1 EACH TAB PO SCH (08:10)
[2018-01-07] MEDS: ROSUVASTATIN CALCIUM 10 MG TAB PO SCH (08:10)
[2018-01-07] MEDS: FENOFIBRATE 145 MG TAB PO SCH (08:10)
[2018-01-07] MEDS: PANTOPRAZOLE SODIUM 40 MG TAB PO SCH (08:10)
[2018-01-07] MEDS: CALCIUM CARB W/VIT D 500 MG TAB PO SCH (08:11)
[2018-01-07] MEDS: PRESERVISION AREDS2 FORMULA EYE VIT 1 EACH PO SCH (08:11)
[2018-01-07] MEDS: ENOXAPARIN 60 MG/0.6 ML SYR SC SCH (08:13)
[2018-01-07] MEDS: EZETIMIBE 10 MG TAB PO SCH (08:16)
[2018-01-07] MEDS ORDERED: ASPIRIN 325 MG TAB PO SCH (09:00)
[2018-01-07] MEDS ORDERED: METOPROLOL TARTRATE 25 MG TAB PO SCH (09:00)
[2018-01-07] MEDS ORDERED: MAGNESIUM OXIDE 400 MG TAB PO SCH (09:00)
[2018-01-07] MEDS: BUDESONIDE/FORMOTEROL 160/4.5 60 PUFFS/MDI IH SCH (09:39)
[2018-01-07] MEDS: FLUTICASONE HFA 44 MCG MDI IH SCH (09:39)
[2018-01-07 09:46] VITALS: BP 161/81
--- NOTE | 2018-01-07 10:01 | PDIAF ---
- Diagnosis Diagnosis: stroke Code Status: Full Code - Medication Management Discharge Medications: Medications to Continue on Transfer Ezetimibe [Zetia 10 MG (*)] 10 mg PO DAILY 06/17/12 [Last Taken 01/05/18] Fenofibrate [Tricor 145 mg (*)] 145 mg PO DAILY 06/17/12 [Last Taken 01/05/18] Fexofenadine HCl [Richelle] 180 mg PO DAILY PRN 06/17/12 [Last Taken 01/05/18] Levothyroxine [Synthroid 100 mcg (*)] 100 mcg PO MOTUTHFRSA@06/17/12 [Last Taken 1 Week Ago ~12/29/17] Albuterol Sulfate [Albuterol Inhaler Hfa] 1 - 2 puffs IH DAILY PRN 05/06/14 [ Last Taken 01/03/18] Budesonide/Formoterol 160/4.5 [Symbicort 160-4.5 Mcg Inh (*)] 2 puffs IH BID 11/10 [Last Taken 01/05/18 09:00] Herbals/Supplements -Info Only 1 ea PO DAILY 05/06/14 [Last Taken 12/19/17 08:00 ] Multivitamins [Multivitamin (*)] 1 each PO DAILY 05/06/14 [Last Taken 01/05/18] Evolocumab [Repatha Sureclick] 140 mg SQ Q14D 10/29/16 [Last Taken 12/25/17] C/E/Zn/Cu/OM3/DHA/EPA/LUT/ZEAX [Preservision Areds 2 Softgel] 1 each PO BID 09/13 [Last Taken 01/05/18 09:00] Cholecalciferol Vit D3 [Vitamin D3 (*)] 5,000 units PO DAILY 11/01/17 [Last Taken 01/05/18] Montelukast Sodium [Singulair 10 mg (*)] 10 mg PO DAILY 11/01/17 [Last Taken 01/13] Omeprazole 40 mg PO DAILY 11/01/17 [Last Taken 01/05/18] Rosuvastatin Calcium [Crestor] 5 mg PO DAILY 11/01/17 [Last Taken 01/05/18 09:00 ] Fluticasone Hfa 44 Mcg [Flovent 44 MCG Hfa MDI (*)] 2 puffs IH BID 11/02/17 [ Last Taken 1 Week Ago ~12/29/17] Calcium Carb W/Vit D [Calcium Carb W/Vit D 500/200 (*)] 500 mg PO DAILY [Last Taken 01/05/18] Calcium Carbonate [Tums 500MG (*)] 500 mg PO DAILY PRN 12/06/17 [Last Taken 11/13] Ranitidine HCl [Zantac] 150 mg PO BID PRN 12/06/17 [Last Taken 01/03/18] Zolpidem Tartrate [Ambien 5MG (*)] 5 mg PO HS PRN 12/06/17 [Last Taken 2 Weeks Ago ~12/22/17] Acetaminophen [Tylenol 325mg (*)] 650 mg PO Q6HRS tab 12/22/17 [Last Taken 01/13 16:00] Aspirin [Aspirin 325 mg (*)] 325 mg PO DAILY #30 tab 01/07/18 [Last Taken Unknown] Metoprolol Tartrate [Lopressor 25 mg (*)] 25 mg PO BID #60 tab 01/07/18 [Last Taken Unknown] amLODIPine BESYLATE [Norvasc 10 mg (*)] 10 mg PO DAILY #30 tab 01/07/18 [Last Taken Unknown] Discharge Medications: Refer to the Discharge Home Medication list for PRN reason. - Orders Services needed: Home Care, Physical Therapy, Occupational Therapy Home Care Face to Face: I certify that this patient was under my care and that I had the required [id number] encounter meeting the encounter requirements on the discharge day. My findings support the fact that the patient is homebound as defined in Home Care Face to Face Continued: CMS Chapter 7 Medicare Benefits Manual 30.1.1 , The condition of the patient is such that there exists a normal inability to leave home and consequently, leaving home would require a considerable and taxing effort. Diet Recommendation: no restrictions on diet Diet Texture: Regular Texture Diet Additional Instructions: activity: as tolerated f/u: with PCP in 1-2 weeks, with Neurology in 2-4 weeks (please call for appt), with Cardiology (Dr. Mathews) in 1-2 weeks (Please call for appt) - Follow Up Care Current Providers and Referrals: Josiane Altman MD [Primary Care Provider] - As per Instructions
--- NOTE | 2018-01-07 10:04 | PDDCSUM ---
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 Please see below for details. 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 -Neuro following and has cleared for discharge -She cannot tolerate Plavix due to bruising and therefore this was not started -LDL goal is less than 70 and she is currently at goal. She will cont with her Statin -SBP less than 140 (see below) (this may be difficult as she has had BP between systolic 90's-180. -A1C less than 7. This is pending, but she has not hx of DM or glucose has been at goal #TIMUR -etiology unclear -significantly improved with Cr. at discharge of 1.1. 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
--- NOTE | 2018-01-07 14:48 | ASMTLACE ---
LACE Length of stay for Answers: 2 days current admission Acuity / Level of Answers: Yes Care: Did the patient have an inpatient admission? Comorbidities - select Answers: Chronic pulmonary disease all that apply Coronary Artery Disease Other Notes: Asthma; Hypothyroid; HL D # of Emergency department Answers: 1-2 visits in the last 6 months Score: 11 Date Signed: 01/07/2018 02:47 PM Electronically Signed By:BRITTNEY Hansen
--- NOTE | 2018-01-07 14:49 | ASMTCMCOM ---
CM Note CM Note Notes: Pt medically stable for d/c with family support/supervision. PT/RFID ANALYST rec outpatient. No CM d/c needs identified. Date Signed: 01/07/2018 02:48 PM Electronically Signed By:BRITTNEY Hansen
[2018-01-08] MEDS ORDERED: Evolocumab [Repatha Sureclick] 140 MG SQ SCH (09:00)
== END 2018-01-07 12:51 | disposition home or self-care (01) | DRG 65 ==
LOC: F3N 20:53 → OBSVTOIN 01-06 12:28
PROVIDERS: ADMIT Internal Medicine; ATTEND Internal Medicine
DX: I63.441 Cerebral infarction due to embolism of right cerebellar artery (principal); N17.9 Acute kidney failure, unspecified; B37.0 Candidal stomatitis; G93.40 Encephalopathy, unspecified; E83.42 Hypomagnesemia; E86.9 Volume depletion, unspecified; I10 Essential (primary) hypertension; I25.10 Atherosclerotic heart disease of native coronary artery without angina pectoris; J44.9 Chronic obstructive pulmonary disease, unspecified; E78.5 Hyperlipidemia, unspecified; Z95.3 Presence of xenogenic heart valve; Z95.5 Presence of coronary angioplasty implant and graft
CPT/HCPCS: 84480-90; 84484-PO; 92523-GN; 96374; 97116-GP; 97161-GP; 97166-GO; 97535-GO; G0378; G8978-GP-CI; G8979-GP-CI; G8980-GP-CI; G8987-GO-CI; G8988-GO-CI; G8989-GO-CI; G9165-GN-CI; G9166-GN-CH; J1650; J2405; J3010; J3475; J7613

== ENCOUNTER → 2018-01-19 | Outpatient (CLI) | payer OTHER, MEDICARE | LOC: BHFA 09:15 | PROVIDERS: ATTEND Internal Medicine Cardiovascular Disease | DX: I35.0 Nonrheumatic aortic (valve) stenosis (principal) ==

== ENCOUNTER → 2018-05-31 | Outpatient (CLI) | payer OTHER, MEDICARE | LOC: FIMAGING 14:15 | PROVIDERS: ATTEND Internal Medicine Pulmonary Disease | DX: R91.1 Solitary pulmonary nodule (principal); I70.8 Atherosclerosis of other arteries; K44.9 Diaphragmatic hernia without obstruction or gangrene; Z98.890 Other specified postprocedural states ==

== ENCOUNTER 2018-06-17 05:46 | Emergency (ER) | payer OTHER, MEDICARE ==
[2018-06-17] MEDS ORDERED: NS 1,000 ML IV ONE (05:55)
--- NOTE | 2018-06-17 06:02 | EDPHY ---
H & P Time Seen by Provider: 06/17/18 05:55 HPI/ROS: Chief Complaint: Shortness of breath, weakness, heart palpitations HPI: 78-year-old woman with a history of coronary artery disease, aortic stenosis status post TAVR procedure last year has had several days of general malaise, nausea vomiting and dehydration. She also has a history of coronary artery disease and has had vessel stenting x3. Patient states that 4 days ago she had a dental cleaning and took oral antibiotics prophylactically. Wednesday morning she woke up with nausea vomiting was in bed all day. Patient continued to have nausea vomiting for the next 2 days. Yesterday she went to the grocery store but became extremely lightheaded and had to sit down. She has been drinking Coca-Cola and eating saltines. Continue general malaise and vomiting and dehydration. This morning she woke up with worsening shortness of breath. She says she cannot climb several stairs leg feeling short of breath which is unusual for her. Some mild chest tightness this morning. No lightheadedness or fainting. She continues to have palpitations and feels that her heart is racing. Does not have a history of irregular heartbeat or atrial fibrillation in the past. She has had some subjective chills at home. Get a flu test this year. No diarrhea or constipation. Does have some mild bilateral ankle swelling which is unusual for her. She did take 324 mg of aspirin at home prior to calling EMS. She states she actually feels much better now. No interventions by EMS. ROS: 10 systems were reviewed and were negative except those elements noted in the HPI. PMH: Coronary artery disease status post stenting x3, aortic stenosis status post TAVR procedure Social History: No smoking, no alcohol, no recreational drug use Family History: non-contributory Physical Exam: Gen: Awake, Alert, No Distress HEENT: Nose: no rhinorrhea Eyes: PERRLA, EOMI Mouth: Dry mucosa Neck: Supple, no JVD Chest: nontender, lungs clear to auscultation Heart: S1, S2 normal, tachycardic, 3 in 6 systolic murmur Abd: Soft, non-tender, no guarding Back: no CVA tenderness, no midline tenderness Ext: no edema, non-tender Skin: no rash Neuro: CN II-XII intact, Sensation grossly intact, Strength 5/5 in bilateral upper and lower extremities - Medical/Surgical History Hx Asthma: Yes Hx Chronic Respiratory Disease: Yes Hx Diabetes: No Hx Cardiac Disease: Yes Hx Renal Disease: No Hx Cirrhosis: No Hx Alcoholism: No Hx HIV/AIDS: No Hx Splenectomy or Spleen Trauma: No Other PMH: CAD w/ 3 stents 2007, asthma, COPD, former smoker, hypothyroidism, GERD, HLD, aortic stenosis L shoulder dislocation with surgery. TAVR Dec 22. - Social History Smoking Status: Former smoker Constitutional: Initial Vital Signs Temperature (C) 36.9 C 06/17/18 05:49 Heart Rate 120 H 06/17/18 05:49 Respiratory Rate 18 06/17/18 05:49 Blood Pressure 170/122 H 06/17/18 05:49 O2 Sat (%) 99 06/17/18 05:49 O2 Delivery Mode Room Air Allergies/Adverse Reactions: simvastatin Allergy (Verified 12/20/17 13:16) Other-Enter Comments Home Medications: Medication Instructions Recorded Ezetimibe [Zetia 10 MG (*)] 10 mg PO DAILY 06/17/12 Fenofibrate [Tricor 145 mg (*)] 145 mg PO DAILY 06/17/12 Fexofenadine HCl [Richelle] 180 mg PO DAILY PRN 06/17/12 Levothyroxine [Synthroid 100 mcg 100 mcg PO MOTUTHFRSA@06 06/17/12 (*)] Albuterol Sulfate [Albuterol 1 - 2 puffs IH DAILY PRN 05/06/14 Inhaler Hfa] Budesonide/Formoterol 160/4.5 2 puffs IH BID 05/06/14 [Symbicort 160-4.5 Mcg Inh (*)] Herbals/Supplements -Info Only 1 ea PO DAILY 05/06/14 Multivitamins [Multivitamin (*)] 1 each PO DAILY 05/06/14 Evolocumab [Repatha Sureclick] 140 mg SQ Q14D 10/29/16 C/E/Zn/Cu/OM3/DHA/EPA/LUT/ZEAX 1 each PO BID 11/01/17 [Preservision Areds 2 Softgel] Cholecalciferol Vit D3 [Vitamin D3 5,000 units PO DAILY 11/01/17 (*)] Montelukast Sodium [Singulair 10 10 mg PO DAILY 11/01/17 mg (*)] Omeprazole 40 mg PO DAILY 11/01/17 Rosuvastatin Calcium [Crestor] 5 mg PO DAILY 11/01/17 Fluticasone Hfa 44 Mcg [Flovent 44 2 puffs IH BID 11/02/17 MCG Hfa MDI (*)] Calcium Carb W/Vit D [Calcium Carb 500 mg PO DAILY 12/06/17 W/Vit D 500/200 (*)] Calcium Carbonate [Tums 500MG (*)] 500 mg PO DAILY PRN 12/06/17 Ranitidine HCl [Zantac] 150 mg PO BID PRN 12/06/17 Zolpidem Tartrate [Ambien 5MG (*)] 5 mg PO HS PRN 12/06/17 Acetaminophen [Tylenol 325mg (*)] 650 mg PO Q6HRS tab 12/22/17 Aspirin [Aspirin 325 mg (*)] 325 mg PO DAILY #30 tab 01/07/18 Metoprolol Tartrate [Lopressor 25 25 mg PO BID #60 tab 01/07/18 mg (*)] amLODIPine BESYLATE [Norvasc 10 mg 10 mg PO DAILY #30 tab 01/07/18 (*)] Medical Decision Making - Diagnostics EKG Interpretation: ECG time 6:06 a.m., sinus tachycardia with a rate of 100, multiple premature ventricular complexes. Probable left ventricular hypertrophy with mildly widened QRS complex. ECG morphology unchanged compared to January 05, 2018. ED Course/Re-evaluation: 78-year-old woman coming in with several days of nausea vomiting, shortness of breath and fatigue. No acute changes on her ECG. Initial troponin is 0.11. She is noted to be profoundly anemic. Also hypokalemic. Patient tells me that she did have some dark stools 2 weeks ago but they were not dark black. None since. No abdominal pain. No blood in her emesis. Patient's D-dimer is noted. Will obtain CT angiogram of the chest. Ordered potassium replacement. Type and screen has been ordered. On rectal exam patient has dark stool but no melena. This has been sent for Hemoccult. Patient with significant anemia most likely secondary to gastrointestinal bleeding. We unfortunately have no physical beds available in the hospital. Patient is agreeing for transfer to a [place]. They have beds available. I have discussed with Dr. Juarez, the facilitating physician for suture. He will speak with the hospitalist at [facility] to arrange for transfer. Patient's tachycardia has improved after hydration. She has never been hypotensive. She is actually cheerful pleasant and smiling, certainly not ill in appearance. - Data Points Laboratory Results: Laboratory Results 06/17/18 05:55 06/17/18 05:55 06/17/18 06/17/18 06/17/18 06:40 06:25 06:10 WBC RBC Hgb Hct MCV MCH MCHC RDW Plt Count MPV Neut % (Auto) Lymph % (Auto) Navarro % (Auto) Eos % (Auto) Baso % (Auto) Nucleat RBC Rel Count Absolute Neuts (auto) Absolute Lymphs (auto) Absolute Monos (auto) Absolute Eos (auto) Absolute Basos (auto) Absolute Nucleated RBC Immature Gran % Immature Gran # Platelet Estimate Polychromasia Hypochromasia Microcytic Cells Oval Macrocytes Stomatocytes Keratocytes Schistocytes Smear Review By PT INR APTT D-Dimer Sodium Potassium Chloride Carbon Dioxide Anion Gap BUN Creatinine Estimated GFR Glucose Calcium POC Troponin I Nasal Influenza A PCR Pending Nasal Influenza B PCR Pending Stool Occult Bld Scrn Pending Patient ABO/Rh Pending Antibody Screen Pending 06/17/18 06/17/18 06/17/18 06:06 05:55 05:55 WBC RBC Hgb Hct MCV MCH MCHC RDW Plt Count MPV Neut % (Auto) Lymph % (Auto) Navarro % (Auto) Eos % (Auto) Baso % (Auto) Nucleat RBC Rel Count Absolute Neuts (auto) Absolute Lymphs (auto) Absolute Monos (auto) Absolute Eos (auto) Absolute Basos (auto) Absolute Nucleated RBC Immature Gran % Immature Gran # Platelet Estimate Polychromasia Hypochromasia Microcytic Cells Oval Macrocytes Stomatocytes Keratocytes Schistocytes Smear Review By PT Pending INR Pending APTT Pending D-Dimer Sodium 134 mEq/L L mEq/L (135-145) Potassium 2.6 mEq/L L* mEq/L (3.5-5.2) Chloride 98 mEq/L mEq/L (97-110) Carbon Dioxide 22 mEq/l mEq/l (22-31) Anion Gap 14 mEq/L mEq/L (6-14) BUN 18 mg/dL mg/dL (7-23) Creatinine 1.0 mg/dL mg/dL (0.6-1.0) Estimated GFR 54 Glucose 123 mg/dL H mg/dL (70-100) Calcium 8.9 mg/dL mg/dL (8.5-10.4) POC Troponin I 0.11 ng/mL H ng/mL (0.00-0.08) Nasal Influenza A PCR Nasal Influenza B PCR Stool Occult Bld Scrn Patient ABO/Rh Antibody Screen 06/17/18 06/17/18 05:55 05:55 WBC 5.91 10^3/uL 10^3/uL (3.80-9.50) RBC 1.81 10^6/uL L 10^6/uL (4.18-5.33) Hgb 5.6 g/dL L* g/dL (12.6-16.3) Hct 17.5 % L* % (38.0-47.0) MCV 96.7 fL fL (81.5-99.8) MCH 30.9 pg pg (27.9-34.1) MCHC 32.0 g/dL L g/dL (32.4-36.7) RDW 14.4 % % (11.5-15.2) Plt Count 195 10^3/uL 10^3/uL (150-400) MPV 12.1 fL H fL (8.7-11.7) Neut % (Auto) 56.3 % % (39.3-74.2) Lymph % (Auto) 31.6 % % (15.0-45.0) Navarro % (Auto) 10.5 % % (4.5-13.0) Eos % (Auto) 0.8 % % (0.6-7.6) Baso % (Auto) 0.5 % % (0.3-1.7) Nucleat RBC Rel Count 0.0 % % (0.0-0.2) Absolute Neuts (auto) 3.32 10^3/uL 10^3/uL (1.70-6.50) Absolute Lymphs (auto) 1.87 10^3/uL 10^3/uL (1.00-3.00) Absolute Monos (auto) 0.62 10^3/uL 10^3/uL (0.30-0.80) Absolute Eos (auto) 0.05 10^3/uL 10^3/uL (0.03-0.40) Absolute Basos (auto) 0.03 10^3/uL 10^3/uL (0.02-0.10) Absolute Nucleated RBC 0.00 10^3/uL 10^3/uL (0-0.01) Immature Gran % 0.3 % % (0.0-1.1) Immature Gran # 0.02 10^3/uL 10^3/uL (0.00-0.10) Platelet Estimate ADEQUATE (ADEQ) Polychromasia 1+ H Hypochromasia 2+ H Microcytic Cells 1+ H Oval Macrocytes 2+ H Stomatocytes 1+ H Keratocytes 1+ H Schistocytes 1+ H Smear Review By Pending PT INR APTT D-Dimer 0.88 ug/mLFEU H ug/mLFEU (0.00-0.50) Sodium Potassium Chloride Carbon Dioxide Anion Gap BUN Creatinine Estimated GFR Glucose Calcium POC Troponin I Nasal Influenza A PCR Nasal Influenza B PCR Stool Occult Bld Scrn Patient ABO/Rh Antibody Screen Medications Given: Discontinued Medications Sodium Chloride (Ns) 1,000 mls @ 0 mls/hr IV ONCE ONE; Wide Open PRN Reason: Protocol Stop: 06/17/18 05:56 Last Admin: 06/17/18 06:08 Dose: 1,000 mls Point of Care Test Results: Chemistry 06/17/18 06:06 POC Troponin I 0.11 ng/mL H ng/mL (0.00-0.08) Departure - Departure Disposition: Acute Care Hospital Not [facility] Clinical Impression: GI bleed, Non-STEMI (non-ST elevated myocardial infarction), Anemia, Hypokalemia, Dehydration Condition: Serious Referrals: Patient,NotPresent [Unknown] - As per Instructions
[2018-06-17 06:17] LABS: PLATELET COUNT 195 10^3/uL (150-400)
[2018-06-17 07:10] LABS: INR 1.24 (0.83-1.16); PROTIME(PATIENT) 15.1 SEC (12.0-15.0)
[2018-06-17] MEDS ORDERED: IOPAMIDOL (ISOVUE-370) 150 ML BTL IV ONE (07:12)
[2018-06-17] MEDS ORDERED: ONDANSETRON 4 MG/2 ML VIAL IVP ONE (08:26)
[2018-06-17] MEDS ORDERED: ONDANSETRON 4 MG/2 ML VIAL ONE (08:27)
[2018-06-17 09:00] VITALS: BP 167/87
== END 2018-06-17 08:40 | disposition short-term general hospital (02) ==
LOC: EDUNIT#
DX: K92.2 Gastrointestinal hemorrhage, unspecified (principal); I21.4 Non-ST elevation (NSTEMI) myocardial infarction; D64.9 Anemia, unspecified; E87.6 Hypokalemia; E86.0 Dehydration; J44.9 Chronic obstructive pulmonary disease, unspecified; J45.909 Unspecified asthma, uncomplicated; E78.5 Hyperlipidemia, unspecified; K21.9 Gastro-esophageal reflux disease without esophagitis; E03.9 Hypothyroidism, unspecified; Z95.5 Presence of coronary angioplasty implant and graft; Z87.891 Personal history of nicotine dependence
CPT/HCPCS: 71046; 71275; 96361; 96374; 99285; J2405; Q9967; 84484-ER

== ENCOUNTER 2018-07-24 05:47 | Inpatient (IN) | payer OTHER, MEDICARE ==
[2018-07-24] MEDS ORDERED: ALBUTEROL 3 ML DEYVIAL ONE (05:56)
[2018-07-24] MEDS ORDERED: ALBUTEROL 3 ML DEYVIAL IH ONE (06:31)
[2018-07-24] MEDS ORDERED: ACETAMINOPHEN 325 MG TAB PO PRN (08:09)
[2018-07-24] MEDS ORDERED: ONDANSETRON 4 MG/2 ML VIAL IVP PRN (08:09)
[2018-07-24] MEDS ORDERED: FUROSEMIDE 20 MG/2 ML VIAL IVP ONE (08:19)
[2018-07-24] MEDS: BUDESONIDE 0.5 MG/2 ML AMPUL.NEB IH SCH ×2 (09:54→21:27)
[2018-07-24] MEDS: ALBUTEROL 3 ML DEYVIAL IH PRN ×2 (09:54→21:27)
[2018-07-24] MEDS ORDERED: Evolocumab [Repatha Sureclick] 140 MG SQ SCH (10:00)
[2018-07-24] MEDS: METOPROLOL TARTRATE 50 MG TAB PO SCH (10:43)
[2018-07-24] MEDS: ONDANSETRON DISINTEGRATING 4 MG TAB PO PRN (12:49)
[2018-07-24] MEDS: PRESERVISION AREDS2 FORMULA EYE VIT 1 EACH PO SCH (20:21)
[2018-07-24] MEDS ORDERED: FAMOTIDINE 20 MG TAB PO PRN (21:00)
[2018-07-24] MEDS: ZOLPIDEM TARTRATE 5 MG TAB PO PRN (21:03)
[2018-07-24] MEDS: FLUTICASONE HFA 44 MCG MDI IH SCH (21:30)
[2018-07-24] MEDS: BUDESONIDE/FORMOTEROL 160/4.5 60 PUFFS/MDI IH SCH (21:31)
[2018-07-25] MEDS: LEVOTHYROXINE 100 MCG TAB PO SCH (06:14)
[2018-07-25] MEDS: FENOFIBRATE 145 MG TAB PO SCH (08:26)
[2018-07-25] MEDS: ROSUVASTATIN CALCIUM 10 MG TAB PO SCH (08:26)
[2018-07-25] MEDS: POTASSIUM CL 10 MEQ TAB PO SCH (08:27)
[2018-07-25] MEDS: PANTOPRAZOLE SODIUM 40 MG TAB PO SCH (08:27)
[2018-07-25] MEDS: MONTELUKAST SODIUM 10 MG TAB PO SCH (08:27)
[2018-07-25] MEDS: PRESERVISION AREDS2 FORMULA EYE VIT 1 EACH PO SCH ×2 (08:27→21:26)
[2018-07-25] MEDS: ASPIRIN 325 MG TAB PO SCH (08:27)
[2018-07-25] MEDS: METOPROLOL TARTRATE 50 MG TAB PO SCH (08:27)
[2018-07-25] MEDS: EZETIMIBE 10 MG TAB PO SCH (08:28)
[2018-07-25] MEDS ORDERED: Herbals/Supplements -Info Only PO SCH (09:00)
[2018-07-25] MEDS ORDERED: predniSONE 20 MG TAB PO SCH ×2 (09:00→16:31)
[2018-07-25] MEDS ORDERED: CETIRIZINE 10 MG TAB PO PRN (09:00)
[2018-07-25] MEDS: BUDESONIDE/FORMOTEROL 160/4.5 60 PUFFS/MDI IH SCH ×2 (09:10→21:02)
[2018-07-25] MEDS: BUDESONIDE 0.5 MG/2 ML AMPUL.NEB IH SCH ×2 (09:10→21:01)
[2018-07-25] MEDS: FLUTICASONE HFA 44 MCG MDI IH SCH ×2 (09:10→21:28)
[2018-07-25] MEDS ORDERED: FUROSEMIDE 20 MG/2 ML VIAL IVP ONE (11:32)
[2018-07-25] MEDS: ONDANSETRON DISINTEGRATING 4 MG TAB PO PRN (17:11)
[2018-07-25] MEDS: ZOLPIDEM TARTRATE 5 MG TAB PO PRN (21:26)
[2018-07-26] MEDS: LEVOTHYROXINE 100 MCG TAB PO SCH (05:13)
[2018-07-26] MEDS: ONDANSETRON DISINTEGRATING 4 MG TAB PO PRN (07:36)
[2018-07-26] MEDS: BUDESONIDE 0.5 MG/2 ML AMPUL.NEB IH SCH ×2 (09:48→21:02)
[2018-07-26] MEDS: ALBUTEROL 3 ML DEYVIAL IH PRN (09:48)
[2018-07-26] MEDS: FLUTICASONE HFA 44 MCG MDI IH SCH ×2 (09:49→21:02)
[2018-07-26] MEDS: BUDESONIDE/FORMOTEROL 160/4.5 60 PUFFS/MDI IH SCH (09:50)
[2018-07-26] MEDS: METOPROLOL TARTRATE 50 MG TAB PO SCH (10:25)
[2018-07-26] MEDS: FUROSEMIDE 40 MG/4 ML VIAL IVP SCH ×2 (10:28→15:43)
[2018-07-26] MEDS: ASPIRIN 325 MG TAB PO SCH (12:18)
[2018-07-26] MEDS: PRESERVISION AREDS2 FORMULA EYE VIT 1 EACH PO SCH ×2 (12:18→20:43)
[2018-07-26] MEDS: ROSUVASTATIN CALCIUM 10 MG TAB PO SCH (12:18)
[2018-07-26] MEDS: PANTOPRAZOLE SODIUM 40 MG TAB PO SCH (12:18)
[2018-07-26] MEDS: FENOFIBRATE 145 MG TAB PO SCH (12:18)
[2018-07-26] MEDS: EZETIMIBE 10 MG TAB PO SCH (12:19)
[2018-07-26] MEDS: POTASSIUM CL 10 MEQ TAB PO SCH (12:19)
[2018-07-26] MEDS: MONTELUKAST SODIUM 10 MG TAB PO SCH (12:19)
[2018-07-26] MEDS: CHOLECALCIFEROL VIT D3 1,000 UNITS TAB PO SCH (12:19)
[2018-07-26] MEDS ORDERED: predniSONE 20 MG TAB PO SCH (13:36)
[2018-07-26] MEDS: ZOLPIDEM TARTRATE 5 MG TAB PO PRN (21:12)
[2018-07-27] MEDS: ROSUVASTATIN CALCIUM 10 MG TAB PO SCH (08:59)
[2018-07-27] MEDS: CHOLECALCIFEROL VIT D3 1,000 UNITS TAB PO SCH (08:59)
[2018-07-27] MEDS: EZETIMIBE 10 MG TAB PO SCH (08:59)
[2018-07-27] MEDS: MONTELUKAST SODIUM 10 MG TAB PO SCH (08:59)
[2018-07-27] MEDS: PRESERVISION AREDS2 FORMULA EYE VIT 1 EACH PO SCH (08:59)
[2018-07-27] MEDS: FENOFIBRATE 145 MG TAB PO SCH (08:59)
[2018-07-27] MEDS: ASPIRIN 325 MG TAB PO SCH (08:59)
[2018-07-27] MEDS: METOPROLOL TARTRATE 50 MG TAB PO SCH (08:59)
[2018-07-27] MEDS ORDERED: FUROSEMIDE 20 MG TAB PO SCH (09:00)
[2018-07-27] MEDS: PANTOPRAZOLE SODIUM 40 MG TAB PO SCH (09:00)
[2018-07-27] MEDS: POTASSIUM CL 10 MEQ TAB PO SCH (09:00)
[2018-07-27] MEDS: BUDESONIDE 0.5 MG/2 ML AMPUL.NEB IH SCH (09:19)
[2018-07-27] MEDS: FLUTICASONE HFA 44 MCG MDI IH SCH (09:20)
== END 2018-07-27 10:42 | disposition home or self-care (01) | DRG 190 ==
DX: J44.1 Chronic obstructive pulmonary disease with (acute) exacerbation (principal); J96.21 Acute and chronic respiratory failure with hypoxia; I11.0 Hypertensive heart disease with heart failure; I50.32 Chronic diastolic (congestive) heart failure; R73.9 Hyperglycemia, unspecified; I25.10 Atherosclerotic heart disease of native coronary artery without angina pectoris; E03.9 Hypothyroidism, unspecified; E78.5 Hyperlipidemia, unspecified; K21.9 Gastro-esophageal reflux disease without esophagitis; Z99.81 Dependence on supplemental oxygen; Z95.3 Presence of xenogenic heart valve; Z95.5 Presence of coronary angioplasty implant and graft; Z87.891 Personal history of nicotine dependence

== ENCOUNTER 2018-09-14 19:53 | Emergency (ER) | payer OTHER, MEDICARE | END 2018-09-15 14:20 | disposition home or self-care (01) ==

== ENCOUNTER 2018-09-16 09:55 | Observation (INO) | payer OTHER, MEDICARE | END 2018-09-17 15:17 | disposition home or self-care (01) | LOC: F3N 13:53 ==

== ENCOUNTER 2018-09-22 04:12 | Inpatient (IN) | payer OTHER, MEDICARE | END 2018-09-24 14:55 | disposition home or self-care (01) | LOC: F2N 15:44 ==